=== PATIENT | male | born 1940 | race Caucasian/White ===

== ENCOUNTER → 2016-12-09 | Outpatient (CLI) | payer OTHER | END | disposition home or self-care (01) | LOC: C.LABPBG 08:11 | PROVIDERS: ATTEND Urology | DX: N40.1 Benign prostatic hyperplasia with lower urinary tract symptoms (principal); R97.20 Elevated prostate specific antigen [PSA] ==

== ENCOUNTER → 2017-12-13 | Outpatient (CLI) | payer OTHER | END | disposition home or self-care (01) | LOC: C.LABPBG 08:42 | PROVIDERS: ATTEND Urology | DX: Z00.00 Encounter for general adult medical examination without abnormal findings (principal); R39.15 Urgency of urination ==

== ENCOUNTER 2024-10-15 16:17 | Inpatient (IN) ==
--- OUTSIDE RECORDS SUMMARY | 2024-10-15 16:20 | External Medical Summary | Summary of Care ---
Author Name Unknown Organization [facility] Address [address] [place] [address] Phone [phone] Care Team Providers Care Bricklayer'S Assistant Name Role Phone Yari Palafox MD Primary Care Provide r Reason for Visit * Reason Comments Acute Encounter Details Date Type Department Care Team (Late st Contact Info) Description 09/08/2024 12:00 PM EST Office Visit Family Medicine [address] [place] [phone] Yari Palafox MD [address] [place] [address] [place] [phone] Chronic pain of left knee*; Benign paroxysmal vertigo of both ears Allergies Active Allergy Reactions Criticality Noted Date Comments No Known Drug Allergy 03/15/2001 documented as of this encounter (statuses as of 09/08/2024) Medications Aspirin 81 MG Oral Tablet Delayed Release Take 1 Tablet by mouth in the morning. Active Pravastatin Sodium 10 MG Oral Tablet (Pravachol) TAKE ONE TABLET BY MOUTH EVERY DAY 90 Tablet 3 11/15/19 24 Active Lisinopril 10 MG Oral Tablet (Prinivil) TAKE ONE TABLET BY MOUTH EVERY DAY 90 Tablet 1 07/25/20 24 Active Diclofenac Sodium 1 % External Gel (Voltaren)Krupa cations:Chroni c pain of left knee Apply to the affected area. Pea size amount daily as needed 350 g 1 02/02/20 24 025 Discontinued(Ia dication List Clean Up) predniSONE 10 MG Oral Tablet (Deltasone)Ind ications:Poiso n kemar Take 5 tabs for 2 days, 4 tabs for 2 days, 3 tabs for 2 days, 2 tabs for 2 days 1 tab for 2 days 30 Tablet 03/10/20 025 Discontinued documented as of this encounter (statuses as of 09/08/2024) Active Problems Problem Noted Date Diagnosed Date HTN, goal below 140/90 02/22/2024 Morbid obesity 02/22/2024 ROTATOR CUFF SYND NOS 09/12/2004 BPH without obstruction/lower urinary tract symp toms 09/07/2003 LUMB-LUMBOSAC DISC DEGEN 09/07/2003 Gastroesophageal reflux disease with esophagitis 09/06/2002 GENERAL OSTEOARTHROSIS 09/15/2001 Mixed dyslipidemia Gouty arthropathy Overview (11/26/2015): ICD-10 update of inactive term Carpal tunnel syndrome Cerebrovascular disease, arteriosclerotic, post- stroke documented as of this encounter (statuses as of 09/08/2024) Resolved Problems Problem Noted Date Diagnosed Date Resolved Date Lumbago 09/07/2003 05/20/2023 Contusion of forearm 023 Injury of median nerve 02/16 documented as of this encounter (statuses as of 09/08/2024) Immunizations No known immunizationsdocumented as of this encounter Social History Tobacco Use Types Packs/Day Years Used Date Smoking Tobacco: Never Smokeless Tobacco: Never Alcohol Use Standard Drinks/Week Comments Not Currently 0 (1 standard drink = 0.6 oz pur e alcohol) 1-2 beers q daily Sex and Gender Information Value Date Recorded Sex Assigned at Not on file Legal Sex Male 5:27 AM EST Gender Identity Not on file Sexual Orientation Not on file documented as of this encounter Last Filed Vital Signs Vital Sign Reading Time Taken Comments Blood Pressure 124/86 09/08/2024 11:49 AM EST Pulse 54 09/08/2024 11:49 AM EST Temperature 35.7 C (96.2 F) 09/08/2024 1 1:49 AM EST Respiratory Rate - - Oxygen Saturation 96% 09/08/2024 11: 49 AM EST Inhaled Oxygen Concentration - - Weight 83 kg (183 lb) 09/08/2024 11:49 AM EST per patient, not weighed in the office Height - - Body Mass Index 39.6 04/22/2023 9:41 AM EDT documented in this encounter Progress Notes * Yari Palafox MD - 09/08/2024 12:00 PM EST Subjective: HPI: Dilip Osborn is a 84 year old male with hx of HLD, CVA with L sided weakness, GERD, BPH, Gout,HTN seen for Going to start PT for L knee - seeing [facility] Pt is having intermittent vertigo - only in the morning - denied any fever or ear pain - last for few min - denied any syncope - per pt he was given meclizine in the past Patient Active Problem List Diagnosis Mixed dyslipidemia Gouty arthropathy Carpal tunnel syndrome GENERAL OSTEOARTHROSIS Gastroesophageal reflux disease with esophagitis BPH without obstruction/lower urinary tract symptoms LUMB-LUMBOSAC DISC DEGEN ROTATOR CUFF SYND NOS Cerebrovascular disease, arteriosclerotic, post-stroke HTN, goal below 140/90 Morbid obesity (HCC) Current Outpatient Medications Medication Sig Dispense Refill Aspirin 81 MG Oral Tablet Delayed Release Take 1 Tablet by mouth in the morning. Pravastatin Sodium 10 MG Oral Tablet (Pravachol) TAKE ONE TABLET BY MOUTH EVERY DAY 90 Tablet 3 Lisinopril 10 MG Oral Tablet (Prinivil) TAKE ONE TABLET BY MOUTH EVERY DAY 90 Tablet 1 No current facility-administered medications for this visit. Past Medical History: Diagnosis Date Benign localized hyperplasia of prostate without urinary obstruction and other lower urinary tract symptoms (LUTS) Carpal tunnel syndrome right Cerebrovascular disease, arteriosclerotic, post-stroke 10/25/2010 right cerebellar CVA Contusion of forearm right median nerve Gouty arthropathy Injury of median nerve 05/12/1994 right Mixed dyslipidemia Past Surgical History: Procedure Laterality Date CHG CT HEAD/BRAIN W/O CONTRAST MATERIAL 05/03/2023 There is a large chronic right cerebellar infarct as well as chronic right [employer]MENT [employer] territory infarcts involving the right temporal and occipital lobes as well as the right thalamus. small vessel disease DIGITAL RECTAL EXAM,ANNUAL 04/23/[address] CATHETER IN ARTERIES 11/06/2010 CATHETER PLACEMENT, BRACHIOCEPHALIC, THIRD ORDER BRANCH performed by ALISSA BRAR at OR [facility] PSA SCREENING 04/23/2000 RADIUS HEAD/NECK FX, REPAIR 05/12/1994 right distal radius TRANSCATH STENT-CAROTID ARTERY, W/EMBOL PROTECTION 11/06/2010 CAROTID STENT WITH DISTAL PROTECTION performed by ALISSA BRAR at OR [facility] DUPLEX CAROTID BILAT Bilateral 04/27/2023 <50% ICA stenosis, vertebrals antegrade Review of patient's allergies indicates: Allergen Reactions No Known Drug Allergy Family History Problem Relation Name Age of Onset Diabetes Mother Cancer Mother breast Hypertension Father Hypertension Son Social History Tobacco Use Smoking status: Never Smokeless tobacco: Never Substance Use Topics Alcohol use: Not Currently Comment: 1-2 beers q daily Vaping/E-Cigarette Use Vaping/E-Cigarette Use Never User Vaping/E-Cigarette Substances Vaping/E-Cigarette Devices ROS: -Per HPI OBJECTIVE: BP 124/86 | Pulse 54 | Temp 96.2 F (35.7 C) | Wt 183 lb (83 kg) Comment: per patient, not weighed in the office | SpO2 96% | BMI 39.60 kg/m | BSA 1.83 m PHYSICAL EXAM: Vitals are reviewed General:. NAD, well developed HEENT:. B/l normal ear canal with TM but mild fluids behind the TMs Psych:. AAOx3, normal affect ASSESSMENT/PLAN: Chronic pain of left knee (Primary) - pt is going to start PT Benign paroxysmal vertigo of both ears - discussed the benefit and risk of meclizine - I suspect the vertigo is 2/2 fluids in the ear - per pt it does not affect him too much therefore elected not to try meclizine - discussed flonse and prednisone --if symptoms worsens then will try short course of prednisone I spent a total of 30-39 minutes (exact time 33 mins) on the date of service in preparation, delivery, and documentation of the care provided to Dilip Osborn excluding any time spent in the performance of separately billed services or time spent by another provider/QHP. Yari Palafox MD Family medicine, [address] [address] documented in this encounter Nursing Notes * Digna Brown CMA - 09/08/2024 11:46 AM EST He has trouble with his knee. He loses his balance. He saw Dr. Raymond before and was given a medication that he thinks was for an ear infection. It helped with his wooziness in the morning when he wakes up though. Thinks it started with an "M". He starts PT next week for the knee. documented in this encounter Plan of Treatment Upcoming Encounters Date Type Department Care Team (Late st Contact Info) Description 10/13/2024 8:00 AM EST Office Visit Family Medicine [address] [phone] Yari Palafox MD [address] [place] [address] [place] [phone] Health Maintenance Due Date Last Done Comments Depression Screening 1953 Albumin/Creatinine Ratio 1959 DTap/Tdap Vaccines (1 - Tdap) 01/30/1960 Pneumococcal Vaccine: 50+ Years (1 of 1 - PCV) 1991 Zoster Vaccines (1 of 2) 1991 Adult Wellness Visit 2007 COVID-19 Vaccine (1 - 2023- season) 2024 Influenza Vaccine (FLU shot) (#1) 2024 GFR 09/17/2024 09/17/2023, 03/25, 09/21/2020, Additional history exists HPV (Gardasil) Vaccine Aged Out No lo nger eligible based on patient's age to complete this topic Hepatitis B Vaccine Aged Out No longe r eligible based on patient's age to complete this topic MENINGOCOCCAL (MENACTRA/MENVEO) Aged Out No longer eligible based on patient's age to complete this topic documented as of this encounter Medical Devices Not on filedocumented as of this encounter Visit Diagnoses Diagnosis Chronic pain of left knee- Primary Pain in joint, lower leg Benign paroxysmal vertigo of both ears Benign paroxysmal positional vertigo documented in this encounter Advance Directives * Full Code (Latest Code Status on File) Date Activated Date Inactivated Comments 10/26/2010 1:40 AM 11/07/2010 5:29 PM This order re flects the patients wishes and were consensually agreed upon. Question Answer Comments Discussion of Advance Directives occurred with: Not Discussed Does the patient have a Living Will? No Does the patient have Health Care Power of Attor madeleine? No Care Teams Bricklayer'S Assistant Relationship Specialty Start Date End Date Yari Palafox MD [address] [place] [address] [place] [phone] PCP - General Family Medicine 01/31/24 documented as of this encounter
--- OUTSIDE RECORDS SUMMARY | 2024-10-15 16:20 | External Medical Summary | Summary of Care ---
Author Name Unknown Organization [facility] Address [address] [place] [address] Phone [phone] Care Team Providers Care Yarn Preparation Supervisor Name Role Phone Yari Palafox MD Primary Care Provide r Encounter Details Date Type Department Care Team (Late st Contact Info) Description 09/11/2024 Population Health External Data Unspecified Department Allergies Active Allergy Reactions Criticality Noted Date Comments No Known Drug Allergy 03/15/2001 documented as of this encounter (statuses as of 09/11/2024) Medications Aspirin 81 MG Oral Tablet Delayed Release Take 1 Tablet by mouth in the morning. Active Pravastatin Sodium 10 MG Oral Tablet (Pravachol) TAKE ONE TABLET BY MOUTH EVERY DAY 90 Tablet 3 11/15/2023 Active Lisinopril 10 MG Oral Tablet (Prinivil) TAKE ONE TABLET BY MOUTH EVERY DAY 90 Tablet 1 07/25/2024 Active documented as of this encounter (statuses as of 09/11/2024) Active Problems Problem Noted Date Diagnosed Date [...] as of this encounter (statuses as of 09/11/2024) Resolved Problems Problem Noted Date Diagnosed Date Resolved Date Lumbago 09/07/2003 05/20/2023 Contusion of forearm 023 Injury of median nerve 02/16 documented as of this encounter (statuses as of 09/11/2024) Immunizations No known immunizationsdocumented as of this [...] on file documented as of this encounter Plan of Treatment Upcoming Encounters Date Type Department Care Team (Late st Contact Info) Description 10/13/2024 8:00 AM EST Office Visit Family Medicine [address] [place] [phone] Yari Palafox MD [address] [place] [address] [place] [phone] Health Maintenance Due Date Last Done Comments Depression Screening 1953 Albumin/Creatinine Ratio 1959 DTap/Tdap Vaccines (1 - Tdap) 01/30/1960 Pneumococcal Vaccine: 50+ Years (1 of 1 - PCV) 1991 Zoster Vaccines (1 of 2) 1991 Adult Wellness Visit 2007 COVID-19 Vaccine (1 - season) 2024 Influenza Vaccine (FLU shot) (#1) [...] Not on filedocumented as of this encounter Advance Directives * Full Code [...] Power of Attor madeleine? No Care Teams Yarn Preparation Supervisor Relationship Specialty Start Date End Date Yari Palafox MD [address] [place] [address] [place] [phone] PCP - General Family Medicine 01/31/24 documented as of this encounter
--- OUTSIDE RECORDS SUMMARY | 2024-10-15 16:20 | External Medical Summary | Summary of Care ---
Author Name Unknown Organization [facility] Address [address] [place] [address] Phone [phone] Care Team Providers Care Stabilizing Machine Operator Name Role Phone Yari Palafox MD Primary Care Provide r Reason for Visit * Reason Onset Date Comments Health Maintenance 10/12/2024 Encounter Details Date Type Department Care Team (Late st Contact Info) Description 10/12/2024 Telephone Family Medicine [address] [place] [phone] Yari Palafox MD [address] [place] [address] [place] [address] Health Maintenance Allergies Active Allergy Reactions Criticality Noted Date Comments No Known Drug Allergy 03/15/2001 documented as of this encounter (statuses as of 10/12/2024) Medications Aspirin 81 MG Oral Tablet Delayed Release Take 1 Tablet by mouth in the morning. Active Pravastatin Sodium 10 MG Oral Tablet (Pravachol) TAKE ONE TABLET BY MOUTH EVERY DAY 90 Tablet 3 11/15/2023 Active Lisinopril 10 MG Oral Tablet (Prinivil) TAKE ONE TABLET BY MOUTH EVERY DAY 90 Tablet 1 07/25/2024 Active documented as of this encounter (statuses as of 10/12/2024) Active Problems Problem Noted Date Diagnosed Date [...] as of this encounter (statuses as of 10/12/2024) Resolved Problems Problem Noted Date Diagnosed Date Resolved Date Lumbago 09/07/2003 05/20/2023 Contusion of forearm 023 Injury of median nerve 02/16 documented as of this encounter (statuses as of 10/12/2024) Immunizations No known immunizationsdocumented as of this [...] on file documented as of this encounter Miscellaneous Notes * Telephone Encounter - Estefania Finley LPN - 10/12/2024 11:47 AM EST Care Gaps Comprehensive Care Outreach Last Office/Telemedicine Visit: 09/08/2024 (in office), Visit date not found (telemedicine) Next Office Visit: 10/13/2024 Hemoglobin AIC Results: Lab Results Component Value Date/Time HEMOGLOBIN A1C - [facility] 6.0 10/26/2010 01:51 AM BP Readings from Last 1 Encounters: 09/08/24 124/86 Reviewed Health Maintenance below: Health Maintenance Topic Date Due Depression Screening Never done Albumin/Creatinine Ratio Never done DTap/Tdap Vaccines (1 - Tdap) Never done Zoster Vaccines (1 of 2) Never done Pneumococcal Vaccine: 50+ Years (1 of 1 - PCV) Never done Adult Wellness Visit Never done Pcp tomorrow Care Gap Outreach Action Taken: Outreach not indicated documented in this encounter Plan of Treatment Upcoming Encounters Date Type Department Care Team (Late st Contact Info) Description 10/13/2024 8:00 AM EST Office Visit Family Medicine [address] [place] [phone] Yari Palafox MD [address] [place] [address] [place] [phone] Health Maintenance Due Date Last Done Comments [...] on patient's age to complete this topic Meningitis B Vaccine (Bexsero/Trumemba) Aged Out No longer eligible based on [...] Power of Attor madeleine? No Care Teams Stabilizing Machine Operator Relationship Specialty Start Date End Date Yari Palafox MD [address] [place] [address] [place] [phone] PCP - General Family Medicine 01/31/24 documented as of this encounter
--- OUTSIDE RECORDS SUMMARY | 2024-10-15 16:20 | External Medical Summary | Summary of Care ---
Author Name Unknown Organization [facility] Address [address] [place] [address] Phone [phone] Care Team Providers Care Rotor Winder Name Role Phone Yari Palafox MD Primary Care Provide r Reason for Visit * Reason Comments eRx-Medication Refill Encounter Details Date Type Department Care Team (Late st Contact Info) Description 07/24/2024 Refill Family Medicine [address] [place] [phone] Yari Palafox MD [address] [place] [address] [place] [phone] Allergies Active Allergy Reactions Criticality Noted Date Comments No Known Drug Allergy 03/15/2001 documented as of this encounter (statuses as of 07/25/2024) Medications Aspirin 81 MG Oral Tablet Delayed Release Take 1 Tablet by mouth in the morning. Active Pravastatin Sodium 10 MG Oral Tablet (Pravachol) TAKE ONE TABLET BY MOUTH EVERY DAY 90 Tablet 3 4 Active Diclofenac Sodium 1 % External Gel (Voltaren)Krupa cations:Chroni c pain of left knee Apply to the affected area. Pea size amount daily as needed 350 g 1 4 Active predniSONE 10 MG Oral Tablet (Deltasone)Ind ications:Poiso n kemar Take 5 tabs for 2 days, 4 tabs for 2 days, 3 tabs for 2 days, 2 tabs for 2 days 1 tab for 2 days 30 Tablet 4 Active Lisinopril 10 MG Oral Tablet (Prinivil) TAKE ONE TABLET BY MOUTH EVERY DAY 90 Tablet 1 4 Active Lisinopril 10 MG Oral Tablet (Prinivil) TAKE ONE TABLET BY MOUTH EVERY DAY 90 Tablet 1 4 024 Discontinued documented as of this encounter (statuses as of 07/25/2024) Active Problems Problem Noted Date Diagnosed Date [...] as of this encounter (statuses as of 07/25/2024) Resolved Problems Problem Noted Date Diagnosed Date Resolved Date Lumbago 09/07/2003 05/20/2023 Contusion of forearm 023 Injury of median nerve 02/16 documented as of this encounter (statuses as of 07/25/2024) Immunizations No known immunizationsdocumented as of this [...] encounter Miscellaneous Notes * Telephone Encounter - Charlie Mackenzie [facility] - 07/25/2024 2:48 PM ESTSigned Prescriptions: Disp Refills Lisinopril 10 MG Oral Tablet (Prinivil) 90 Tab*1 Sig: TAKE ONE TABLET BY MOUTH EVERY DAYAuthorizing Provider: Kayla PALAFOX User: CHARLIE MACKENZIE documented in this encounter Plan of Treatment Upcoming Encounters Date Type Department Care Team (Late st Contact Info) Description 10/13/2024 8:00 AM EST Office Visit Family Medicine [address] [place] [phone] Yari Palafox MD [address] [place] [address] [place] [phone] Health Maintenance Due Date Last Done Comments Depression Screening 1953 Albumin/Creatinine Ratio 1959 DTap/Tdap Vaccines (1 - Tdap) 01/30/1960 Zoster Vaccines (1 of 2) 1991 Pneumococcal Vaccine: 65+ Years (1 of 1 - PCV) 2006 Adult Wellness Visit 2007 COVID-19 Vaccine ( - season) 2024 Influenza Vaccine (FLU shot) (#1) 2024 GFR 09/17/2024 09/17/2023, 08/08/2022, 09/21/2020, Additional history exists HPV (Gardasil) Vaccine [...] Power of Attor madeleine? No Care Teams Rotor Winder Relationship Specialty Start Date End Date Yari Palafox MD [address] [place] [address] [place] [phone] PCP - General Family Medicine 01/31/24 documented as of this encounter
[2024-10-15 16:46] LABS: Basophils # (auto) 0.02 K/uL (0.00-0.20); Basophils % (auto) 0.2 %; Eosinophils # (auto) 0.02 K/uL (0.00-0.50); Eosinophils % (auto) 0.2 %; Hematocrit (blood only) 42.9 % (42.0-52.0); Hemoglobin 14.9 g/dl (14.0-18.0); Immature Granulocytes # (auto) 0.09 K/uL (0.01-0.20); Lymphocytes # (auto) 1.01 K/uL (1.20-3.40); Lymphocytes % (auto) 11.1 %; Mean Corpuscular Hemoglobin 29.3 pg (25.0-34.0); Mean Corpuscular Hgb Conc 34.7 g/dL (32.0-36.0); Mean Corpuscular Volume 84.4 fL (80.0-100.0); Mean Platelet Volume 9.5 fL (9.4-12.4); Monocytes # (auto) 1.01 K/uL (0.11-0.59); Monocytes % (auto) 11.1 %; Neutrophils # (auto) 6.96 K/uL (1.40-6.50); Neutrophils % (auto) 76.4 %; Platelet Count 300 K/uL (130-400); RDW Coefficient of Variation 13.1 % (11.5-14.5); RDW Standard Deviation 40.9 fL (36.4-46.3); Red Blood Count 5.08 M/uL (4.70-6.10); White Blood Count 9.11 K/ul (4.8-10.8)
--- NOTE | 2024-10-15 16:47 | Emergency Department Note ---
Impression & Plan Acute pyelonephritis, Influenza A, Acute renal failure (ARF), Pneumonia ED Provider Note NAME: BRIANDA HUNT AGE: 84 SEX: M : 1940 ARRIVES VIA: Ambulance INFORMANT: Patient, the patient's son ED PROVIDER(S): Chilango Jimenez DO CHIEF COMPLAINT: Cough and back pain HPI: The patient is an 84-year-old male who presented to the emergency department with multiple complaints. He came by ambulance. His family members called the ambulance because he has been having problems with an upper respiratory infection that is been ongoing over the course of the last. 8 or 9 days. The patient's significant other also became sick but was better in approximately 2 to 3 days. The patient complains of cough and weakness. He is not been eating or drinking. He also complains of abdominal pain and back pain. He denies having any chest pain. He denies having any hemoptysis. He states he is "just not hungry "and that is why he is not eating or drinking. He tried to see his doctor but was unable to go. They were not able to get him an appointment until December. ROS: See above HPI for pertinent positives & negatives. A total of 10 systems reviewed and were otherwise negative. PAST MEDICAL HISTORY: See Below PAST SURGICAL HISTORY: See Below FAMILY HISTORY: See Below SOCIAL HISTORY: See Below HOME MEDICATIONS: See Below ALLERGIES: See Below VITALS: See Below PHYSICAL EXAMINATION: GENERAL: Patient is awake alert in no acute distress patient is resting comfortably and showing no signs of anxiety EYES: The conjunctivae are clear. The pupils are round and reactive. EARS, NOSE, MOUTH AND THROAT: The nose is without any evidence of any deformity. NECK: The neck is nontender and supple. RESPIRATORY: Normal respiratory effort is noted there is no evidence of wheezing rhonchi or rales CARDIOVASCULAR: Regular rate and rhythm noted there no murmurs rubs or gallops normal S1 normal S2. GASTROINTESTINAL: The abdomen is soft. There is right-sided tenderness to palpation which is moderate. There is no specific guarding. BACK: No midline tenderness or or step-off noted range of motion in flexion extension as well as rotation no signs of muscle spasm noted MUSCULOSKELETAL/EXTREMITIES: There is no evidence of gross deformity full range of motion is noted in the hips and shoulders. SKIN: There is no obvious evidence of any rash. There are no petechiae, pallor or cyanosis noted. NEUROLOGIC: Patient is awake alert and oriented x3. Strength is symmetric. MEDICAL DECISION MAKING: The patient is an 84-year-old male who presented to the emergency department with family for an evaluation of generalized illness. The patient had a viral type syndrome. The patient was felt to be dehydrated. He was not eating or drinking very much. The patient was found no signs of urinary tract infection. He was treated with IV fluids as well as IV antibiotics. His flu swab was positive and he was found to have signs of renal failure on laboratory studies. I discussed the patient's laboratory and radiographic studies with him and his family. [facility] have agreed to evaluate the patient in the emergency department for further management and disposition. Triage Nursing notes reviewed. Prior medical records reviewed Vital Signs: reviewed and remarkable for no significant abnormalities Differential diagnosis: Etiologies such as appendicitis, diverticulitis, obstruction, inflammatory bowel disease, renal colic, PUD, biliary pathology, pancreatitis, mesenteric ischemia, aortic pathology, infections, genitourinary, UTI, perforated viscus, as well as others were entertained. ER treatment provided: See below Diagnostics interpreted by me: ECG: EKG was obtained in the emergency department. My interpretation is normal sinus rhythm at 89 bpm. There is no ectopy. There was no acute ST segment abnormalities noted. This was compared to a tracing from October 03, 2019. No changes were noted. Cardiac Monitoring: An order was placed for continuous cardiac monitoring. The monitor shows a rate of 93 bpm with sinus rhythm. Laboratory studies: As stated above and show below. Imaging studies: See below. Radiographic imaging was reviewed by myself Consultation(s): I discussed this case with Dr. Adair who [facility] Past Med/Surg History Problem List (Updated 10/15/24 @ 18:30 by Chilango Jimenez DO) Pneumonia (Acute) Acute renal failure (ARF) (Acute) Influenza A (Acute) Acute pyelonephritis (Acute) Encounter for pre-operative examination BPH (benign prostatic hyperplasia) Elevated PSA Urinary urgency Enlarged prostate Medical History (Updated 10/15/24 @ 18:30 by Chilango Jimenez DO) Back pain Hydrocele LEFT History of stroke 9 YR AGO - NO RESIDUAL EFFECTS Hypertension Surgical History No history of previous surgery Family History Mother FHx: breast cancer Mother Family history of diabetes mellitus Social History Smoking Status: Never smoker Second Hand Exposure: Yes ( SMOKES); Do You Dip or Chew Tobacco: No; Hx Alcohol Use: Yes (VERY RARE) Alcohol type: wine Hx Substance Use: No Preferred Language: Spanish Communication Ability: Effective Beliefs That Will Affect Care: None Current Living Situation: Spouse Feels Safe at Home: Yes Assistive Devices: Denture - Upper, Denture - Lower and Glasses Allergies Allergies Allergy/AdvReac Type Severity Reaction Status Date / Time No Known Allergies Allergy Verified 05/07/20 07:51 Home Meds Home Medications Medication Instructions Recorded Confirmed aspirin 81 mg tablet,delayed 81 mg PO QAM 09/28/19 10/15/24 release (Bettie Low Dose Aspirin) lisinopril 5 mg tablet 5 mg PO QAM 09/28/19 10/15/24 pravastatin 10 mg tablet 10 mg PO HS 09/28/19 10/15/24 Results & Data (ED) Vital Signs Vital Signs - 24 hr 10/15/24 16:23 10/15/24 16:43 Temperature 36.4 C L Temperature Source Oral Pulse Rate 91 H 93 H Respiratory Rate 22 Blood Pressure 102/62 Blood Pressure Mean 75 Blood Pressure Position Sitting Pulse Oximetry 97 Oxygen Delivery Method Room Air Sepsis Recent Fever Within 48 Hours No Sepsis New/Unexplained Change in Mental Status No Sepsis Action Taken by Nursing No Action Required Home Medications Current Medication List: was personally reviewed by me Laboratory Data Attestation: I reviewed the patient's lab results. 10/15/24 16:25 10/15/24 16:25 Lab Results 10/15/24 10/15/24 10/15/24 Range/Units 16:23 16:25 16:58 WBC 9.11 (4.8-10.8) K/ul RBC 5.08 (4.70-6.10) M/uL Hgb 14.9 (14.0-18.0) g/dl POC Hgb 13.9 L (14.0-18.0) g/dl Hct 42.9 (42.0-52.0) % POC Hct 41 L (42-52) % MCV 84.4 (80.0-100.0) fL MCH 29.3 (25.0-34.0) pg MCHC 34.7 (32.0-36.0) g/dL RDW Std Deviation 40.9 (36.4-46.3) fL RDW Coeff of Miguel Angel 13.1 (11.5-14.5) % Plt Count 300 (130-400) K/uL MPV 9.5 (9.4-12.4) fL Immature Gran % (Auto) 1.0 % Neut % (Auto) 76.4 % Lymph % (Auto) 11.1 % [place] % (Auto) 11.1 % Eos % (Auto) 0.2 % Baso % (Auto) 0.2 % Neut # (Auto) 6.96 H (1.40-6.50) K/uL Lymph # (Auto) 1.01 L (1.20-3.40) K/uL [place] # (Auto) 1.01 H (0.11-0.59) K/uL Eos # (Auto) 0.02 (0.00-0.50) K/uL Baso # (Auto) 0.02 (0.00-0.20) K/uL Immature Gran # (Auto) 0.09 (0.01-0.20) K/uL PT 10.7 (9.0-12.0) Seconds INR 1.0 (0.9-1.1) APTT 28 (21-31) Seconds PTT Ratio 1.0 VBG pH (7.36-7.41) VBG pCO2 (38-50) mmHg VBG pO2 mmHg VBG HCO3 mmol/L VBG O2 Saturation % VBG Base Excess mEq/L POC Sodium 133 L (135-144) mmol/L Sodium 133 L (136-145) mmol/L POC Potassium 4.0 (3.3-5.0) mmol/L Potassium 4.3 (3.5-5.1) mmol/L POC Chloride 100 L (101-112) mmol/L Chloride 99 (98-107) mmol/L Carbon Dioxide 16 L (21-32) mmol/L POC Total CO2 16 L (24-31) mmol/L Anion Gap 18 H (3-11) POC Anion Gap 22.0 (16-25) mmol/L POC BUN > 140 H* (7-18) mg/dl BUN 162 H (6-23) mg/dl Creatinine 5.18 H* (0.6-1.4) mg/dl POC Creatinine 5.7 H* (0.6-1.3) mg/dl Est Cr Clr Drug Dosing 10.4 ml/min eGFR 10.38 BUN/Creatinine Ratio 31.3 H (10-20) Glucose 112 H (70-99(Fasting)) mg/dl POC Glucose (other) 108 H (70-99) mg/dl Calcium 8.9 (8.6-10.3) mg/dl POC Ioniz Calcium Jay 1.07 L (1.12-1.32) mmol/l Total Bilirubin 0.4 (0.2-1.0) mg/dl AST 11 L (13-39) U/L ALT 12 (7-52) U/L Alkaline Phosphatase 44 (34-104) U/L Total Creatine Kinase 134 (30-223) U/L Troponin I High Sens 10.1 (0-20) pg/ml Total Protein 7.5 (6.0-8.3) gm/dl Albumin 3.8 (3.4-5.0) gm/dl Globulin 3.7 (2.5-4.0) gm/dl Albumin/Globulin Ratio 1.0 (0.9-2) Lipase 32 (11-82) U/L Urine Color Urine Appearance (Clear) Urine pH (4.5-7.5) Ur Specific [place] (1.000-1.030) Urine Protein (Negative) Urine Glucose (UA) (Negative) Urine Ketones (Negative) Urine Blood (Negative) Urine Nitrite (Negative) Urine Bilirubin (Negative) Urine Urobilinogen (Negative) Ur Leukocyte Esterase (Negative) Urine WBC (Auto) (0-5) /hpf Urine RBC (Auto) (0-2) /hpf U Hyaline Cast (Auto) (0-2) /lpf U Epithel Cells (Auto) (0-2) /hpf Urine Bacteria (Auto) (None Seen) Nasal Influ A H1 2008 PCR DETECTED A (NotDetected) Adenovirus (PCR) Not Detected (NotDetected) B. pertussis DNA (PCR) Not Detected (NotDetected) B.parapertussis DNA PCR Not Detected (NotDetected) C. pneumoniae DNA (PCR) Not Detected (NotDetected) Coronavirus OC43 (PCR) Not Detected (NotDetected) Coronavirus HKU1 (PCR) Not Detected (NotDetected) Coronavirus 229E (PCR) Not Detected (NotDetected) SARS-CoV-2 (PCR) Not Detected (NotDetected) Coronavirus NL63 (PCR) Not Detected (NotDetected) Human Metapneumovir PCR Not Detected (NotDetected) Influenza Type B (PCR) Not Detected (NotDetected) M. pneumoniae (PCR) Not Detected (NotDetected) Parainfluenza 1 (PCR) Not Detected (NotDetected) Parainfluenza 2 (PCR) Not Detected (NotDetected) Parainfluenza 3 (PCR) Not Detected (NotDetected) Parainfluenza 4 (PCR) Not Detected (NotDetected) RSV (PCR) Not Detected (NotDetected) Entero/Rhino (PCR) Not Detected (NotDetected) 10/15/24 10/15/24 Range/Units 17:48 17:57 WBC (4.8-10.8) K/ul RBC (4.70-6.10) M/uL Hgb (14.0-18.0) g/dl POC Hgb (14.0-18.0) g/dl Hct (42.0-52.0) % POC Hct (42-52) % MCV (80.0-100.0) fL MCH (25.0-34.0) pg MCHC (32.0-36.0) g/dL RDW Std Deviation (36.4-46.3) fL RDW Coeff of Miguel Angel (11.5-14.5) % Plt Count (130-400) K/uL MPV (9.4-12.4) fL Immature Gran % (Auto) % Neut % (Auto) % Lymph % (Auto) % [place] % (Auto) % Eos % (Auto) % Baso % (Auto) % Neut # (Auto) (1.40-6.50) K/uL Lymph # (Auto) (1.20-3.40) K/uL [place] # (Auto) (0.11-0.59) K/uL Eos # (Auto) (0.00-0.50) K/uL Baso # (Auto) (0.00-0.20) K/uL Immature Gran # (Auto) (0.01-0.20) K/uL PT (9.0-12.0) Seconds INR (0.9-1.1) APTT (21-31) Seconds PTT Ratio VBG pH 7.28 L (7.36-7.41) VBG pCO2 31 L (38-50) mmHg VBG pO2 33 mmHg VBG HCO3 15 mmol/L VBG O2 Saturation < 60.0 % VBG Base Excess -10.9 mEq/L POC Sodium (135-144) mmol/L Sodium (136-145) mmol/L POC Potassium (3.3-5.0) mmol/L Potassium (3.5-5.1) mmol/L POC Chloride (101-112) mmol/L Chloride (98-107) mmol/L Carbon Dioxide (21-32) mmol/L POC Total CO2 (24-31) mmol/L Anion Gap (3-11) POC Anion Gap (16-25) mmol/L POC BUN (7-18) mg/dl BUN (6-23) mg/dl Creatinine (0.6-1.4) mg/dl POC Creatinine (0.6-1.3) mg/dl Est Cr Clr Drug Dosing ml/min eGFR BUN/Creatinine Ratio (10-20) Glucose (70-99(Fasting)) mg/dl POC Glucose (other) (70-99) mg/dl Calcium (8.6-10.3) mg/dl POC Ioniz Calcium Jay (1.12-1.32) mmol/l Total Bilirubin (0.2-1.0) mg/dl AST (13-39) U/L ALT (7-52) U/L Alkaline Phosphatase (34-104) U/L Total Creatine Kinase (30-223) U/L Troponin I High Sens (0-20) pg/ml Total Protein (6.0-8.3) gm/dl Albumin (3.4-5.0) gm/dl Globulin (2.5-4.0) gm/dl Albumin/Globulin Ratio (0.9-2) Lipase (11-82) U/L Urine Color Yellow Urine Appearance Cloudy A (Clear) Urine pH 5.0 (4.5-7.5) Ur Specific [place] 1.017 (1.000-1.030) Urine Protein Trace H (Negative) Urine Glucose (UA) Negative (Negative) Urine Ketones Trace H (Negative) Urine Blood Negative (Negative) Urine Nitrite Negative (Negative) Urine Bilirubin Negative (Negative) Urine Urobilinogen Negative (Negative) Ur Leukocyte Esterase Negative (Negative) Urine WBC (Auto) 6-10 H (0-5) /hpf Urine RBC (Auto) 6-10 H (0-2) /hpf U Hyaline Cast (Auto) >20 H (0-2) /lpf U Epithel Cells (Auto) 0-2 (0-2) /hpf Urine Bacteria (Auto) None Seen (None Seen) Nasal Influ A H1 2008 PCR (NotDetected) Adenovirus (PCR) (NotDetected) B. pertussis DNA (PCR) (NotDetected) B.parapertussis DNA PCR (NotDetected) C. pneumoniae DNA (PCR) (NotDetected) Coronavirus OC43 (PCR) (NotDetected) Coronavirus HKU1 (PCR) (NotDetected) Coronavirus 229E (PCR) (NotDetected) SARS-CoV-2 (PCR) (NotDetected) Coronavirus NL63 (PCR) (NotDetected) Human Metapneumovir PCR (NotDetected) Influenza Type B (PCR) (NotDetected) M. pneumoniae (PCR) (NotDetected) Parainfluenza 1 (PCR) (NotDetected) Parainfluenza 2 (PCR) (NotDetected) Parainfluenza 3 (PCR) (NotDetected) Parainfluenza 4 (PCR) (NotDetected) RSV (PCR) (NotDetected) Entero/Rhino (PCR) (NotDetected) Administered Medications Discontinued Medications Sodium Chloride (Nss) 500 mls @ 999 mls/hr IV .Q31M ONE Stop: 10/15/24 17:11 Last Admin: 10/15/24 16:54 Dose: 999 mls/hr Documented By: STEFFANIE Imaging Data Attestation: I personally reviewed and interpreted this imaging study as follows: My Impression: 1 view chest x-ray was obtained in the emergency department. My interpretation is no free air, possible infiltrate in the right base, final report below. Radiologist's Impression: Chest X-Ray 10/15/24 16:27 INDICATION: Cough. TECHNIQUE: Frontal radiograph of the chest. COMPARISON: Radiograph from 10/03/2019. FINDINGS: Low inspiratory depth. Mild cardiomegaly. Pulmonary vasculature appear within normal limits. Right lower lobe atelectasis/airspace disease. No pleural effusion or pneumothorax. No acute osseous abnormality evident. IMPRESSION: Right lower lobe atelectasis/airspace disease. Electronically signed by Len Ventura 10-15-2024 5:11 PM Abdomen/Pelvis CT 10/15/24 17:01 CT CHEST ABDOMEN and PELVIS WITHOUT CONTRAST INDICATION: Pain. Cough TECHNIQUE: CT of chest, abdomen and pelvis was obtained with intravenous contrast. IV CONTRAST: NONE Enteric contrast: Not Given COMPARISON: FINDINGS: LOWER NECK: Normal thyroid. LYMPH NODES: A few small nonenlarged lymph nodes in the mediastinum. No lymphadenopathy by size criteria. CARDIOVASCULAR: Cardiac size is enlarged. Coronary artery calcifications are noted. No aortic aneurysm. LUNGS: The trachea and central bronchi are widely patent. There are some debris in the right lower lobar airways. Peribronchial cuffing noted in the right lung base where there are also patchy infiltrates. There are no suspicious pulmonary nodules. PLEURA: There are no pleural effusions. There is no pneumothorax. LIVER: No focal lesion identified. GALLBLADDER/BILIARY: Unremarkable gallbladder. No abnormal biliary dilatation. SPLEEN: Unremarkable. PANCREAS: Unremarkable. ADRENALS: Unremarkable. KIDNEYS: Mild perinephric stranding bilaterally.. No stones or hydronephrosis identified. PERITONEUM/RETROPERITONEUM. No lymphadenopathy by size criteria. No aortic aneurysm. Mild atherosclerosis. GASTROINTESTINAL: No obstruction. Moderate size hiatal hernia. Extensive colonic diverticulosis of the rectosigmoid without overt diverticulitis. Normal appendix is identified. REPRODUCTIVE: Enlarged prostate gland with coarse calcifications, seemingly impinging upon the urinary bladder outlet. URINARY BLADDER: Mildly distended. Moderate wall thickening and mild perivesical inflammation. BONES: No acute findings. IMPRESSION: Infectious/inflammatory bronchiolitis with evidence of small quantity aspiration in the right lower lobe. Also in the right lower lobe there are patchy acute infiltrates suggesting mild pneumonia. Moderate size hiatal hernia. Enlarged prostate gland impinging upon the urinary bladder outlet. There are inflammatory changes of the urinary bladder which may be due to superimposed cystitis. In addition, mild perinephric stranding noted bilaterally. Please correlate with urinalysis for these findings. Electronically signed by Dayron Isaac 10-15-2024 6:[address] 10/15/24 17:17 CT CHEST ABDOMEN and PELVIS WITHOUT CONTRAST INDICATION: Pain. Cough TECHNIQUE: CT of chest, abdomen and pelvis was obtained with intravenous contrast. IV CONTRAST: NONE Enteric contrast: Not Given COMPARISON: FINDINGS: LOWER NECK: Normal thyroid. LYMPH NODES: A few small nonenlarged lymph nodes in the mediastinum. No lymphadenopathy by size criteria. CARDIOVASCULAR: Cardiac size is enlarged. Coronary artery calcifications are noted. No aortic aneurysm. LUNGS: The trachea and central bronchi are widely patent. There are some debris in the right lower lobar airways. Peribronchial cuffing noted in the right lung base where there are also patchy infiltrates. There are no suspicious pulmonary nodules. PLEURA: There are no pleural effusions. There is no pneumothorax. LIVER: No focal lesion identified. GALLBLADDER/BILIARY: Unremarkable gallbladder. No abnormal biliary dilatation. SPLEEN: Unremarkable. PANCREAS: Unremarkable. ADRENALS: Unremarkable. KIDNEYS: Mild perinephric stranding bilaterally.. No stones or hydronephrosis identified. PERITONEUM/RETROPERITONEUM. No lymphadenopathy by size criteria. No aortic aneurysm. Mild atherosclerosis. GASTROINTESTINAL: No obstruction. Moderate size hiatal hernia. Extensive colonic diverticulosis of the rectosigmoid without overt diverticulitis. Normal appendix is identified. REPRODUCTIVE: Enlarged prostate gland with coarse calcifications, seemingly impinging upon the urinary bladder outlet. URINARY BLADDER: Mildly distended. Moderate wall thickening and mild perivesical inflammation. BONES: No acute findings. IMPRESSION: Infectious/inflammatory bronchiolitis with evidence of small quantity aspiration in the right lower lobe. Also in the right lower lobe there are patchy acute infiltrates suggesting mild pneumonia. Moderate size hiatal hernia. Enlarged prostate gland impinging upon the urinary bladder outlet. There are inflammatory changes of the urinary bladder which may be due to superimposed cystitis. In addition, mild perinephric stranding noted bilaterally. Please correlate with urinalysis for these findings. Electronically signed by Dayron Isaac 10-15-2024 6:01 PM Discharge Plan Visit Data Chief Complaint: Illness ED Provider: Chilango Jimenez Discharge Problem: Acute pyelonephritis, Influenza A, Acute renal failure (ARF), Pneumonia Patient Disposition: Being Evaluated by Hospitalist Forms Stand Alone Forms: My [facility] Prescriptions Prescriptions: No Action aspirin [Bettie Low Dose Aspirin] 81 mg Tablet,Delayed Release (Dr/Ec) 81 mg PO QAM lisinopril 5 mg Tablet 5 mg PO QAM pravastatin 10 mg Tablet 10 mg PO HS Referrals Referrals: PCP,NO [Primary Care Provider] -
[2024-10-15] MEDS: SODIUM CHLORIDE 0.9% 500 ML IV ONE (16:54)
[2024-10-15 17:10] LABS: iSTAT Blood Urea Nitrogen > 140 mg/dl (7-18); iSTAT Carbon Dioxide 16 mmol/L (24-31); iSTAT Chloride 100 mmol/L (101-112); iSTAT Creatinine 5.7 mg/dl (0.6-1.3); iSTAT Glucose 108 mg/dl (70-99); iSTAT Hematocrit 41 % (42-52); iSTAT Hemoglobin 13.9 g/dl (14.0-18.0); iSTAT Ionized Calcium 1.07 mmol/l (1.12-1.32); iSTAT Sodium 133 mmol/L (135-144)
--- NOTE | 2024-10-15 17:11 | XRay Report ---
INDICATION: Cough. TECHNIQUE: Frontal radiograph of the chest. COMPARISON: Radiograph from 10/03/2019. FINDINGS: Low inspiratory depth. Mild cardiomegaly. Pulmonary vasculature appear within normal limits. Right lower lobe atelectasis/airspace disease. No pleural effusion or pneumothorax. No acute osseous abnormality evident. IMPRESSION: Right lower lobe atelectasis/airspace disease. Electronically signed by Len Ventura 10-15-2024 5:11 PM
[2024-10-15 17:15] LABS: Partial Thromboplastin Time 28 Seconds (21-31); Prothrombin Time 10.7 Seconds (9.0-12.0)
[2024-10-15 17:21] LABS: Albumin Level 3.8 gm/dl (3.4-5.0); BUN Creatinine Ratio 31.3 (10-20); Bilirubin,Total 0.4 mg/dl (0.2-1.0); Calcium 8.9 mg/dl (8.6-10.3); Creatinine Clr Calc Pharmacy 10.4 ml/min; Globulin 3.7 gm/dl (2.5-4.0); Potassium 4.3 mmol/L (3.5-5.1); Total Protein 7.5 gm/dl (6.0-8.3)
[2024-10-15 17:43] LABS: Troponin I High Sensitivity 10.1 pg/ml (0-20)
[2024-10-15 17:51] LABS: Adenovirus PCR Not Detected (NotDetected); Bordetella parapertussis PCR Not Detected (NotDetected); Bordetella pertussis PCR Not Detected (NotDetected); Chlamydia pneumoniae PCR Not Detected (NotDetected); Coronavirus 229E PCR Not Detected (NotDetected); Coronavirus CoV-2 (COVID19)PCR Not Detected (NotDetected); Coronavirus HKU1 PCR Not Detected (NotDetected); Coronavirus NL63 PCR Not Detected (NotDetected); Coronavirus OC43PCR Not Detected (NotDetected); Human Metapneumovirus PCR Not Detected (NotDetected); Influenza A (H1 2009) PCR DETECTED (NotDetected); Influenza B PCR Not Detected (NotDetected); Mycoplasma pneumoniae PCR Not Detected (NotDetected); Parainfluenza Virus 1 PCR Not Detected (NotDetected); Parainfluenza Virus 2 PCR Not Detected (NotDetected); Parainfluenza Virus 3 PCR Not Detected (NotDetected); Parainfluenza Virus 4 PCR Not Detected (NotDetected); Respiratory Syncytial VirusPCR Not Detected (NotDetected); Rhinovirus/Enterovirus PCR Not Detected (NotDetected)
--- NOTE | 2024-10-15 18:01 | CT Scan Report ---
CT CHEST ABDOMEN and PELVIS WITHOUT CONTRAST INDICATION: Pain. Cough TECHNIQUE: CT of chest, abdomen and pelvis was obtained with intravenous contrast. IV CONTRAST: NONE Enteric contrast: Not Given COMPARISON: FINDINGS: LOWER NECK: Normal thyroid. LYMPH NODES: A few small nonenlarged lymph nodes in the mediastinum. No lymphadenopathy by size criteria. CARDIOVASCULAR: Cardiac size is enlarged. Coronary artery calcifications are noted. No aortic aneurysm. LUNGS: The trachea and central bronchi are widely patent. There are some debris in the right lower lobar airways. Peribronchial cuffing noted in the right lung base where there are also patchy infiltrates. There are no suspicious pulmonary nodules. PLEURA: There are no pleural effusions. There is no pneumothorax. LIVER: No focal lesion identified. GALLBLADDER/BILIARY: Unremarkable gallbladder. No abnormal biliary dilatation. SPLEEN: Unremarkable. PANCREAS: Unremarkable. ADRENALS: Unremarkable. KIDNEYS: Mild perinephric stranding bilaterally.. No stones or hydronephrosis identified. PERITONEUM/RETROPERITONEUM. No lymphadenopathy by size criteria. No aortic aneurysm. Mild atherosclerosis. GASTROINTESTINAL: No obstruction. Moderate size hiatal hernia. Extensive colonic diverticulosis of the rectosigmoid without overt diverticulitis. Normal appendix is identified. REPRODUCTIVE: Enlarged prostate gland with coarse calcifications, seemingly impinging upon the urinary bladder outlet. URINARY BLADDER: Mildly distended. Moderate wall thickening and mild perivesical inflammation. BONES: No acute findings. IMPRESSION: Infectious/inflammatory bronchiolitis with evidence of small quantity aspiration in the right lower lobe. Also in the right lower lobe there are patchy acute infiltrates suggesting mild pneumonia. Moderate size hiatal hernia. Enlarged prostate gland impinging upon the urinary bladder outlet. There are inflammatory changes of the urinary bladder which may be due to superimposed cystitis. In addition, mild perinephric stranding noted bilaterally. Please correlate with urinalysis for these findings. Electronically signed by Dayron Isaac 10-15-2024 6:01 PM
[2024-10-15 18:07] LABS: Base Excess VBG -10.9 mEq/L; HCO3 VBG 15 mmol/L; Oxygen Saturation VBG < 60.0 %; PCO2 VBG 31 mmHg (38-50); PO2 VBG 33 mmHg; pH VBG 7.28 (7.36-7.41)
[2024-10-15 18:24] LABS: Appearance Urine Cloudy (Clear); Bacteria Urine Automated None Seen (None Seen); Bilirubin Urine Negative (Negative); Blood Urine Negative (Negative); Cast Urine Automated >20 /lpf (0-2); Color Urine Yellow; Epithelial Cell Urine Auto 0-2 /hpf (0-2); Glucose Urine UA Negative (Negative); Ketones Urine Trace (Negative); Leukocyte Esterase Urine Negative (Negative); Nitrite Urine Negative (Negative); Protein Urine Trace (Negative); Specific Gravity Urine 1.017 (1.000-1.030); Urobilinogen Urine Negative (Negative)
[2024-10-15] MEDS: SODIUM CHLORIDE 0.9% 1,000 ML IV ONE (18:49)
--- NOTE | 2024-10-15 19:03 | History & Physical Report ---
Date of Service October 15, 2024 Assessment & Plan (1) Acute renal failure (ARF): (2) Influenza A: (3) BPH (benign prostatic hyperplasia): (4) Hypertension: Plan Patient 84-year-old gentleman presents to the emergency room with poor appetite and increasing weakness. Evaluation emergency room shows acute renal failure most likely combination of volume depletion/dehydration in the setting of profuse watery diarrhea and influenza A with a component of ATN due to use of lisinopril and hypotension from infection. Patient is at risk for worsening renal function electrolyte abnormalities and arrhythmias due to acute kidney injury and requires hospital level care and intervention including IV fluids and frequent laboratory monitoring Admit to the hospital for ongoing care Continue IV fluid resuscitation Hold nephrotoxins Monitor renal function Maintain Tolbert catheter. CT question some mild obstructive findings from the prostate, this point we will maintain the Tolbert to eliminate that as a question for his renal dysfunction. Patient has most likely had his influenza infection for at least 7 to 9 days. We discussed Tamiflu, I felt at this point most likely would not be beneficial to him and would potentially only cause additional issues with his renal function. Patient and son at the bedside was agreeable to holding any treatment with Tamiflu at this time Discussed advanced directives, patient is really never thought about this before and therefore this time with his request to stay full code Anticipate renal function will slowly improve as he is resuscitated and nephrotoxins held, if no significant improvement would consider nephrology consult. History of Present Illness Chief Complaint: Weakness, not eating, not drinking Primary Care Provider: NO PCP Patient is an 84-year-old gentleman lives independently with his and son in the same household. According to the son who is at the bedside everybody got "the flu last weekend." Patient's symptoms were primarily GI. Sounds like he has been having large-volume this diarrhea stools at least 2-4 times daily since last weekend. Over the course of the week he is gotten progressively weaker. His oral intake has decreased. And the last 2 days did not even come down out of the bedroom and has not been eating or drinking really anything at all. Will with the situation son brought the patient to the emergency room for evaluation. In the emergency room did test positive for influenza A. But most notably patient had acute renal failure. Referred to our service for further evaluation. Time my evaluation patient was just walking for the bathroom having having a large diarrheal stool. He has somewhat of an unsteady gait but was able to ambulate with some one-person assist. He denies any fever or chills. No cough or congestion. Really denies any abdominal pain. But is concerned that he is having the loose stools. Admits to not having much of an appetite. Did insist that he was drinking some lucas brayden. Son at the bedside states that he really has not been even drinking that much lucas brayden in the last 48 hours has really not had much oral intake at all. Patient denies any real prostate symptoms. He reports that he is still making urine and does not feel as though he has any issues emptying his bladder. He is quite alert and knows his medications and when he takes them. Son did state that he had a remote stroke in the past and does get a few events in the past mixed with current events but this is his baseline. Patient reports that the stool has been brown and watery in volume this but has not seen any blood. No vomiting. No chest pain no shortness of breath. Allergies Allergy/AdvReac Type Severity Reaction Status Date / Time No Known Allergies Allergy Verified 05/07/20 07:51 Home Medications Medication Instructions Recorded Confirmed Type aspirin 81 mg tablet,delayed 81 mg PO QAM 09/28/19 10/15/24 History release (Bettie Low Dose Aspirin) lisinopril 5 mg tablet 5 mg PO QAM 09/28/19 10/15/24 History pravastatin 10 mg tablet 10 mg PO HS 09/28/19 10/15/24 History Past Med/Surg History Problem List (Updated 10/15/24 @ 18:30 by Chilango Jimenez DO) Pneumonia (Acute) Acute renal failure (ARF) (Acute) Influenza A (Acute) Acute pyelonephritis (Acute) Encounter for pre-operative examination BPH (benign prostatic hyperplasia) Elevated PSA Urinary urgency Enlarged prostate Medical History (Updated 10/15/24 @ 18:30 by Chilango Jimenez DO) Back pain Hydrocele LEFT History of stroke 9 YR AGO - NO RESIDUAL EFFECTS Hypertension Surgical History No history of previous surgery Family History Mother FHx: breast cancer Mother Family history of diabetes mellitus Social History Smoking Status: Never smoker Second Hand Exposure: Yes ( SMOKES); Do You Dip or Chew Tobacco: No; Hx Alcohol Use: Yes (VERY RARE) Alcohol type: wine Hx Substance Use: No Preferred Language: Panamanian Communication Ability: Effective Beliefs That Will Affect Care: None Current Living Situation: Spouse Feels Safe at Home: Yes Assistive Devices: Denture - Upper, Denture - Lower and Glasses Review of Systems Review of Systems: Pertinent positive and negative review of systems as mentioned in the HPI Physical Exam Physical Exam: Constitutional: Alert, ill in appearance, nontoxic, somewhat frail HEENT: Mucous membranes moist. Sclera clear Neck: Soft, no adenopathy Lungs: Clear to auscultation, decreased, no wheezes rales or rhonchi CV: S1-S2, regular Abdomen: Soft, nontender, nondistended Extremities: No significant edema Musculoskeletal: No significant joint tenderness Neuro: No focal deficits, mild general weakness Psych: Cooperative, normal mood Results & Data Results & Data Vital Signs (Past 12 Hours) Vital Signs Temp Pulse Resp BP Pulse Ox O2 Del Method 10/15/24 16:43 93 H 10/15/24 16:23 36.4 C L 91 H 22 102/62 97 Room Air Diagnostic Findings Reviewed imaging, laboratory and diagnostic studies. Pertinent findings as be low. Personally reviewed chest x-ray, no definitive infiltrate on my interpretation Personally reviewed EKG, normal sinus rhythm without acute ST-T wave changes Respiratory viral panel positive for influenza A H1 Urinalysis unremarkable for signs of infection Sodium 133 Potassium 4.3 Bicarb 16 Anion gap 18 BUN 162 Creatinine 5.1 WBCs 9.11 Hemoglobin 14.9 Platelets 300 Code Status & VTE Plan VTE Prophylaxis Plan VTE Prophylaxis will be ordered: Yes
[2024-10-15] MEDS: cefTRIAXone SODIUM 2,000 MG/50 ML BAG IV STA (19:05)
[2024-10-15] MEDS ORDERED: POLYETHYLENE (MIRALAX) 17 GM PACK PO PRN (20:38)
[2024-10-15] MEDS ORDERED: ONDANSETRON INJ 2 MG/ML 2 ML VIAL IV PRN (20:38)
[2024-10-15] MEDS ORDERED: ACETAMINOPHEN 325 MG TAB PO PRN (20:38)
[2024-10-15] MEDS: SODIUM CHLORIDE 0.9% 1,000 ML IV SCH (22:36)
[2024-10-15] MEDS: HEPARIN SOD 5,000 UNIT/0.5 ML VIAL SQ SCH (22:36)
[2024-10-15] MEDS: PRAVASTATIN SOD 10 MG TAB PO SCH (22:36)
[2024-10-16 00:08] LABS: C Reactive Protein 12.81 mg/dl (0-0.5)
[2024-10-16 07:26] LABS: Hematocrit (blood only) 36.4 % (42.0-52.0); Hemoglobin 12.5 g/dl (14.0-18.0); Mean Corpuscular Hemoglobin 29.3 pg (25.0-34.0); Mean Corpuscular Hgb Conc 34.3 g/dL (32.0-36.0); Mean Corpuscular Volume 85.2 fL (80.0-100.0); Mean Platelet Volume 9.3 fL (9.4-12.4); Platelet Count 282 K/uL (130-400); RDW Coefficient of Variation 13.3 % (11.5-14.5); RDW Standard Deviation 41.5 fL (36.4-46.3); Red Blood Count 4.27 M/uL (4.70-6.10); White Blood Count 8.23 K/ul (4.8-10.8)
--- NOTE | 2024-10-16 07:47 | Hospitalist Progress Note ---
Date of Service October 16, 2024 Assessment & Plan (1) Acute renal failure (ARF): (2) Influenza A: (3) BPH (benign prostatic hyperplasia): (4) Hypertension: Plan Acute Renal Failure Cr 5.8 on admission, downtrending CT abd pelvis noting "Enlarged prostate gland impinging upon the urinary bladder outlet. " Tolbert in place IV fluids nephrology consulted for CHEMA, appreciate recs urology consulted for CT abd findings of enlarged prostate gland impinging on the urinary bladder outlet Aspiration Pneumonia CT chest noting aspiration in the RLL with pneumonia ("..Infectious/inflammatory bronchiolitis with evidence of small quantity aspiration in the right lower lobe. Also in the right lower lobe there are patchy acute infiltrates suggesting mild pneumonia...") No increased oxygen requirement or leukocytosis, not septic Started on Augmentin speech consult, appreciate recs Acute Metabolic Encephalopathy head CT unremarkable Delirium precautions. Frequent reorientation, avoid sedating medications likely in setting of above Continue to monitor Hypocalcemia Replete as needed Continue other meds as ordered Diet: HH DVT prophylaxis: heparin SQ Dispo: PT/OT for further recs Admission and Anticipated Discharge Date Admission Date: October 15, 2024 Subjective pt was seen with his son at bedside. per son episodes of confusion pt denied acute concerns, AAOx2 Review of Systems Review of Systems: All systems reviewed & are unremarkable except as noted in Subjective Physical Exam Physical Exam: General: Alert, oriented. No acute distress Psych: Appropriate mood and affect HEENT: NC/AT CV: RRR Resp: Breath sounds clear bilaterally, no increased effort of breathing Abdomen: Soft, nontender Extremities: No edema in lower extremities bilaterally. Results & Data Results & Data Vital Signs (Past 12 Hours) Vital Signs Temp Pulse Pulse Resp BP BP Pulse Ox 10/16/24 07:01 36.5 C 90 16 107/54 L 96 10/16/24 05:06 82 113/69 10/16/24 01:11 10/16/24 01:11 36.7 C 101 H 18 135/49 L 97 10/16/24 00:00 92 H 22 91/58 L 97 10/15/24 22:57 90 33 H 124/63 10/15/24 22:54 92 H 10/15/24 22:30 92 H 19 108/57 L 10/15/24 22:00 88 31 H 103/66 10/15/24 21:30 88 35 H 112/58 L 10/15/24 20:36 86 37 H 116/92 10/15/24 20:20 85 10/15/24 20:09 86 43 H 116/56 L O2 Del Method 10/16/24 07:01 Room Air 10/16/24 05:06 10/16/24 01:11 Room Air 10/16/24 01:11 Room Air 10/16/24 00:00 10/15/24 22:57 10/15/24 22:54 10/15/24 22:30 10/15/24 22:00 10/15/24 21:30 10/15/24 20:36 10/15/24 20:20 10/15/24 20:09
[2024-10-16 08:28] LABS: Creatinine Clr Calc Pharmacy 15.7 ml/min; Potassium 3.8 mmol/L (3.5-5.1)
[2024-10-16 09:07] LABS: BUN Creatinine Ratio 40.2 (10-20)
[2024-10-16] MEDS: ASPIRIN 81 MG ECTAB PO SCH (09:08)
[2024-10-16] MEDS: AMOXICILLIN/CLAVULANATE 500 MG TAB PO SCH (09:08)
[2024-10-16] MEDS: ADVANCED PROBIOTIC 625 MG CAPSULE PO SCH (10:01)
[2024-10-16] MEDS: CALCIUM GLUCONATE 1,000 MG/60 ML BAG IV SCH (10:01)
--- NOTE | 2024-10-16 10:19 | Nephrology Consultation ---
Date of Consultation October 16, 2024 Assessment & Plan (1) Acute renal failure (ARF): nonoliguric stage 3 CHEMA w/ baseline creatinine 1.1, improvign w/ gentle resuscitation. prerenal adn responding to fluid resuscitation whihcx he appeasr to be tolerating. UA reassuring > ketonuria -NS a s toelrated -daily bmp -cont strict I/O -cont to hold ACEI no indication for ICE SELLER here currently though will cont to follow (2) Influenza A: out of window for tamiflue (3) Enlarged prostate: urology following; as per them History of Present Illness Reason for Consultation: severe CHEMA Requesting Physician: Dr Palomino Attending Physician: Avani Palomino MD History of Present Illness 84 y/o M whom I'm asked to see for severe CHEMA was admitted last evening with same in the setting of influenza A after presenting with at least 7 days of progressive weakness and poor po intake, diarrhea. PMH includes mild HTN, HL. Baseline creatinine is 1.1 but this is based on 2022 data. His presenting creatinine was 5.1, down to 3.4 this AM after fluis resuscitation with one L NS. . denies LE edema, sob, orthopnea, new or worrisome voiding sx prior to admission (w/ ross currently), no f/c; no presyncopal sx; denies fall hx. Pt lives w/ and son. Allergies Allergy/AdvReac Type Severity Reaction Status Date / Time No Known Allergies Allergy Verified 05/07/20 07:51 Home Medications Medication Instructions Recorded Confirmed Type aspirin 81 mg tablet,delayed 81 mg PO QAM 09/28/19 10/15/24 History release (Bettie Low Dose Aspirin) lisinopril 5 mg tablet 5 mg PO QAM 09/28/19 10/15/24 History pravastatin 10 mg tablet 10 mg PO HS 09/28/19 10/15/24 History Patient History Medical History Back pain Hydrocele LEFT History of stroke 9 YR AGO - NO RESIDUAL EFFECTS Hypertension Surgical History No history of previous surgery Family History Mother FHx: breast cancer Mother Family history of diabetes mellitus Social History Smoking Status: Never smoker Second Hand Exposure: Yes ( SMOKES); Do You Dip or Chew Tobacco: No; Hx Alcohol Use: No Hx Substance Use: No Preferred Language: Spanish Communication Ability: Effective Jigman Required: No Beliefs That Will Affect Care: None Current Living Situation: Spouse and Other Current Living Situation Comment: son Feels Safe at Home: Yes Safety Concerns: Feels Safe At This Time Assistive Devices: Walker Review of Systems 2 Review of Systems: All systems reviewed & are unremarkable except as noted in HPI & below Physical Exam 2 Constitutional: well developed and well nourished Eyes: EOM intact bilaterally ENMT: Mouth: + dry oral mucous membranes Respiratory: normal respiratory effort Auscultation: + diminished lung sounds Gastrointestinal (Abdomen): Inspection/Auscultation: normal bowel sounds P ercussion/Palpation: abdomen soft; abdomen nontender Musculoskeletal: Extremities: strength 5/5 throughout Skin: no rashes, warm and dry Neurologic: reed, fluent speech, no tremor Results & Data Vital Signs (Past 12 Hours) Vital Signs Temp Pulse Pulse Resp BP BP Pulse Ox 10/16/24 08:20 10/16/24 07:01 36.5 C 90 16 107/54 L 96 10/16/24 05:06 82 113/69 10/16/24 01:11 10/16/24 01:11 36.7 C 101 H 18 135/49 L 97 10/16/24 00:00 92 H 22 91/58 L 97 10/15/24 22:57 90 33 H 124/63 10/15/24 22:54 92 H 10/15/24 22:30 92 H 19 108/57 L O2 Del Method 10/16/24 08:20 Room Air 10/16/24 07:01 Room Air 10/16/24 05:06 10/16/24 01:11 Room Air 10/16/24 01:11 Room Air 10/16/24 00:00 10/15/24 22:57 10/15/24 22:54 10/15/24 22:30 Laboratory Results 10/16/24 07:04 10/16/24 07:04 UA > 1017, cloudy, trace ketones, protein; no bacteriua Diagnostic Findings CT c/a/p non con LOWER NECK: Normal thyroid. LYMPH NODES: A few small nonenlarged lymph nodes in the mediastinum. No lymphadenopathy by size criteria. CARDIOVASCULAR: Cardiac size is enlarged. Coronary artery calcifications are noted. No aortic aneurysm. LUNGS: The trachea and central bronchi are widely patent. There are some debris in the right lower lobar airways. Peribronchial cuffing noted in the right lung base where there are also patchy infiltrates. There are no suspicious pulmonary nodules. PLEURA: There are no pleural effusions. There is no pneumothorax. LIVER: No focal lesion identified. GALLBLADDER/BILIARY: Unremarkable gallbladder. No abnormal biliary dilatation. SPLEEN: Unremarkable. PANCREAS: Unremarkable. ADRENALS: Unremarkable. KIDNEYS: Mild perinephric stranding bilaterally.. No stones or hydronephrosis identified. PERITONEUM/RETROPERITONEUM. No lymphadenopathy by size criteria. No aortic aneurysm. Mild atherosclerosis. GASTROINTESTINAL: No obstruction. Moderate size hiatal hernia. Extensive colonic diverticulosis of the rectosigmoid without overt diverticulitis. Normal appendix is identified. REPRODUCTIVE: Enlarged prostate gland with coarse calcifications, seemingly impinging upon the urinary bladder outlet. URINARY BLADDER: Mildly distended. Moderate wall thickening and mild perivesical inflammation. BONES: No acute findings. IMPRESSION: Infectious/inflammatory bronchiolitis with evidence of small quantity aspiration in the right lower lobe. Also in the right lower lobe there are patchy acute infiltrates suggesting mild pneumonia. Moderate size hiatal hernia. Enlarged prostate gland impinging upon the urinary bladder outlet.
--- NOTE | 2024-10-16 11:48 | Urology Consultation ---
Date of Consultation October 16, 2024 Assessment & Plan (1) Enlarged prostate: (2) Acute renal failure (ARF): 84-year-old male influenza A and acute renal failure. Patient is afebrile with stable vitals Labs reviewedcreatinine downtrending, 3.41 today UA was not suspicious for infection CHEMA may be due to dehydration/GI losses Renal function improving with fluid resuscitation Continue to trend labs Nephrology consult pending Tolbert currently in place, maintain Tolbert catheter for now CT imaging shows no hydronephrosis; enlarged prostate with possible bladder outlet obstruction He denies bothersome LUTS at baseline Can consider addition of Tamsulosin Can consider voiding trial while inpatient when he clinically improves will follow, please contact our service with any additional questions/concerns History of Present Illness Attending Physician: Avani Palomino MD History of Present Illness This is an 84-year-old male who has followed with urology in the past for BPH with LUTS and prostate cancer screening. He presented to the emergency department on 10/15/2024 for evaluation of at least 1 week history of upper respiratory symptoms, progressive weakness, diarrhea, and poor PO intake. In ED, he tested positive for influenza A. Lab work notable for severe CHEMA with creatinine of 5.18. He was admitted for influenza A and acute renal failure. Urology is consulted for enlarged prostate, CHEMA. Workup included CT abdomen pelvis without con. CT imaging reviewed and showed no stones or hydronephrosis, bilateral perinephric stranding. Enlarged prostate with calcifications. Tolbert catheter was placed in the emergency department. Urinalysis showed 6-10 WBC, 6-10 RBC, negative for bacteria. Labs today reviewedcreatinine 3.41, WBC 8.23, hemoglobin 12.5. Patient seen and examined at bedside this morning. He is awake and resting in bed. Tolbert intact. Denies discomfort. Continues to feel fatigue and weakness. Denies bothersome lower urinary tract symptoms at baseline. Denies dysuria or hematuria. Denies nausea, vomiting, fever or chills at present. Previously followed with Dr. Richards. He is not on any BPH medications. Allergies Allergy/AdvReac Type Severity Reaction Status Date / Time No Known Allergies Allergy Verified 05/07/20 07:51 Home Medications Medication Instructions Recorded Confirmed Type aspirin 81 mg tablet,delayed 81 mg PO QAM 09/28/19 10/15/24 History release (Bettie Low Dose Aspirin) lisinopril 5 mg tablet 5 mg PO QAM 09/28/19 10/15/24 History pravastatin 10 mg tablet 10 mg PO HS 09/28/19 10/15/24 History Patient History Medical History Back pain Hydrocele LEFT History of stroke 9 YR AGO - NO RESIDUAL EFFECTS Hypertension Surgical History No history of previous surgery Family History Mother FHx: breast cancer Mother Family history of diabetes mellitus Social History Smoking Status: Never smoker Second Hand Exposure: Yes ( SMOKES); Do You Dip or Chew Tobacco: No; Hx Alcohol Use: No Hx Substance Use: No Preferred Language: Amharic Communication Ability: Effective Hatchery Supervisor Required: No Beliefs That Will Affect Care: None Current Living Situation: Spouse and Other Current Living Situation Comment: son Feels Safe at Home: Yes Safety Concerns: Feels Safe At This Time Assistive Devices: Denture - Upper, Denture - Lower and Glasses Review of Systems Review of Systems: All systems reviewed & are unremarkable except as noted in HPI & below Physical Exam Constitutional: well developed and well nourished; no acute distress Respiratory: normal respiratory effort; no respiratory distress and no labored breathing Gastrointestinal (Abdomen): Inspection/Auscultation: abdomen normal to inspection Musculoskeletal: Head/Neck/Chest: normocephalic Neurologic: moves all extremities and awake Psychiatric: Orientation: alert and oriented x 3 Genitourinary: Tolbert draining clear yellow Results & Data Vital Signs (Past 12 Hours) Vital Signs Temp Pulse Pulse Resp BP BP Pulse Ox 10/16/24 08:20 10/16/24 07:01 36.5 C 90 16 107/54 L 96 10/16/24 05:06 82 113/69 10/16/24 01:11 10/16/24 01:11 36.7 C 101 H 18 135/49 L 97 10/16/24 00:00 92 H 22 91/58 L 97 O2 Del Method 10/16/24 08:20 Room Air 10/16/24 07:01 Room Air 10/16/24 05:06 10/16/24 01:11 Room Air 10/16/24 01:11 Room Air 10/16/24 00:00 PG Care Time/CCT Total # of Minutes Spent Total Time Spent with Patient: Total time spent is greater than 50% in coordination of care (as documented) at patient's floor/unit and/or counseling patient: Coding Level of Care Code 24944 INT INP/OBS CARE 2/55MIN Diagnoses Enlarged prostate N40.0 Acute renal failure (ARF) N17.9
--- NOTE | 2024-10-16 15:27 | Electrocardiogram Report ---
Test Reason : Blood Pressure : */* mmHG Vent. Rate : 89 BPM Atrial Rate : 89 BPM P-R Int : 202 ms QRS Dur : 88 ms QT Int : 350 ms P-R-T Axes : 31 -12 49 degrees QTcB Int : 425 ms Normal sinus rhythm Normal ECG When compared with ECG of 03-Oct-2019 08:50, No significant change was found Confirmed by Chilango Mae ([id number]) on 10/16/2024 3:27:13 PM Referred By: REFERRED SELF Confirmed By: Chilango Mae
--- NOTE | 2024-10-16 16:17 | CT Scan Report ---
EXAM: CT Head Without Intravenous Contrast INDICATION: Other mental status TECHNIQUE: Axial computed tomography images of the head/brain without intravenous contrast. Sagittal and/or coronal reformats are provided. Sagittal and coronal reformatted images were created and reviewed. This CT exam was performed using one or more of the following dose reduction techniques: automated exposure control, adjustment of the mA and/or kV according to patient size, and/or use of iterative reconstruction technique. COMPARISON: No relevant prior studies available. FINDINGS: Limitations: None. Brain and extra-axial spaces: There is age appropriate cortical atrophy and chronic ischemic periventricular white matter hypodensity. No acute infarct, hemorrhage or mass noted. 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 Bones/joints: No acute changes. Soft tissues: No significant abnormality noted. Vasculature: There is dense intracranial atherosclerosis. Sinuses: No layering fluid in the visualized portions of the paranasal sinuses. Mastoid air cells: No mastoid effusion. Orbits: No significant abnormality noted. IMPRESSION: Cerebral atrophy. No acute changes. ACT 112: Negative or not required by law. Electronically signed by Nolvia Arnold 10-16-2024 4:17 PM
[2024-10-16] MEDS: guaiFENesin 600 MG TABCR PO SCH (22:00)
[2024-10-16] MEDS: BENZONATATE 100 MG CAPSULE PO PRN (22:00)
[2024-10-17 08:21] LABS: Basophils # (auto) 0.02 K/uL (0.00-0.20); Basophils % (auto) 0.2 %; Eosinophils # (auto) 0.06 K/uL (0.00-0.50); Eosinophils % (auto) 0.7 %; Hematocrit (blood only) 37.4 % (42.0-52.0); Hemoglobin 12.6 g/dl (14.0-18.0); Immature Granulocytes # (auto) 0.09 K/uL (0.01-0.20); Immature Granulocytes % (auto) 1.1 %; Lymphocytes # (auto) 0.82 K/uL (1.20-3.40); Lymphocytes % (auto) 9.8 %; Mean Corpuscular Hemoglobin 29.1 pg (25.0-34.0); Mean Corpuscular Hgb Conc 33.7 g/dL (32.0-36.0); Mean Corpuscular Volume 86.4 fL (80.0-100.0); Mean Platelet Volume 9.2 fL (9.4-12.4); Monocytes # (auto) 0.98 K/uL (0.11-0.59); Monocytes % (auto) 11.8 %; Neutrophils # (auto) 6.36 K/uL (1.40-6.50); Neutrophils % (auto) 76.4 %; Platelet Count 296 K/uL (130-400); RDW Coefficient of Variation 13.6 % (11.5-14.5); RDW Standard Deviation 43.1 fL (36.4-46.3); Red Blood Count 4.33 M/uL (4.70-6.10); White Blood Count 8.33 K/ul (4.8-10.8)
[2024-10-17 08:43] LABS: BUN Creatinine Ratio 44.6 (10-20); Calcium 8.2 mg/dl (8.6-10.3); Creatinine Clr Calc Pharmacy 30.3 ml/min; Magnesium 2.1 mg/dl (1.7-2.4); Phosphorus 3.2 mg/dl (2.5-4.9); Potassium 4.4 mmol/L (3.5-5.1)
--- NOTE | 2024-10-17 11:07 | Nephrology Progress Note ---
Date of Service October 17, 2024 Assessment & Plan (1) Acute renal failure (ARF): Plan: further improving nonoliguric stage 3 CHEMA w/ baseline creatinine 1.1, improving w/ gentle resuscitation. creatinine 1.8 today and BUN 79. tolerating IVF so far UA reassuring > ketonuria noted also w/ NAGMA in the wake of NS -changed IVF to 1/2 NS w/ 50 mEq K x 1L >> hypotonic slightly so should help sNa as well -f/u pending stool studies -from a neph standpoint could consider voiding trial -daily bmp -cont strict I/O -cont to hold ACEI no indication for [facility] MANAGER discussion I spent 15 min updating son about neph status, clinical status; connected him w/ RN for the pt. Care coordinated with Dr Palomino re son's thoughts pt needs rehab given L leg/stairs at home, volume status/cough/IVF/CXR, ISS/flutter via TText; we are in agreement. (2) Influenza A: Plan: out of window for tamiflu; on abtx for aspiration PNA >not hypoxic but thick cough on inspiration and asymmetric lung exam >>CXR 1600 > if issues, stop IVF >>asked RN to encourage ISS/flutter (3) Enlarged prostate: Plan: urology following; as per them Admission and Anticipated Discharge Date Admission Date: October 15, 2024 Subjective clinically improving; denies sob, n/v, edema, gen weakness, uncontrolled pain. eager for d/c. does endorse some diarrhea still. states he's eating well. son reports concerns about pt getting up stairs at home; on normal day drags his L leg w/ ambulation post stroke; dislikes/avoids doctors since stroke. Review of Systems 2 Review of Systems: All systems reviewed & are unremarkable except as noted in Subjective Physical Exam 2 Constitutional: well developed and well nourished Eyes: EOM intact bilaterally ENMT: Mouth: + dry oral mucous membranes Respiratory: normal respiratory effort and + cough (thick cough w/ inspiration) Auscultation: + diminished lung sounds (ford R lung lozoya mid/bottom) Gastrointestinal (Abdomen): Inspection/Auscultation: normal bowel sounds P ercussion/Palpation: abdomen soft; abdomen nontender Musculoskeletal: Extremities: strength 5/5 throughout Skin: no rashes, warm and dry Neurologic: reed, fluent speech, no tremor Results & Data Vital Signs (Past 12 Hours) Vital Signs Temp Pulse Resp BP Pulse Ox O2 Del Method 10/17/24 07:35 Room Air 10/17/24 07:20 36.9 C 81 18 118/63 93 Room Air Laboratory Results 10/17/24 07:57 10/17/24 07:57
[2024-10-17] MEDS: SODIUM BICARBONATE 8.4% 50 MEQ in SODIUM CHLORIDE 0.45 % 1,000 ML IV SCH (11:55)
[2024-10-17] MEDS: CALCIUM CARBONATE 500 MG CHEWABLE TAB PO PRN (12:02)
[2024-10-17 12:22] LABS: Adenovirus F 40/41 PCR Not Detected (NotDetected); Astrovirus PCR Not Detected (NotDetected); Campylobacter PCR Not Detected (NotDetected); Cryptosporidium PCR Not Detected (NotDetected); Cyclospora cayetanensis PCR Not Detected (NotDetected); Entamoeba histolytica PCR Not Detected (NotDetected); Enteroaggregative E.coli(EAEC) Not Detected (NotDetected); Enteropathogenic E.coli (EPEC) Not Detected (NotDetected); Enterotoxigenic E.coli (ETEC) Not Detected (NotDetected); Giardia lamblia PCR Not Detected (NotDetected); Norovirus GI/GII PCR Not Detected (NotDetected); Plesiomonas shigelloides PCR Not Detected (NotDetected); Rotavirus A PCR Not Detected (NotDetected); Salmonella PCR Not Detected (NotDetected); Sapovirus PCR Not Detected (NotDetected); Shiga-like Toxin E.coli (STEC) Not Detected (NotDetected); Shigella/Enteroinvasive E.coli Not Detected (NotDetected); Vibrio cholerae PCR Not Detected (NotDetected); Vibrio species PCR Not Detected (NotDetected); Yersinia enterocolitica PCR Not Detected (NotDetected)
--- NOTE | 2024-10-17 13:51 | Urology Progress Note ---
Date of Service October 17, 2024 Assessment & Plan (1) BPH (benign prostatic hyperplasia): (2) Acute renal failure (ARF): Plan: Follow-up of BPH, CHEMA Patient afebrile with stable vitals Labs reviewedcreatinine improved to 1.77 Renal function improving with fluid resuscitation, continue to trend labs Tolbert in place Can perform voiding trial prior to discharge from perspective Continue supportive care medical management per hospital medicine service Will arrange outpatient follow-up with urology will sign off, please contact our service with any additional questions or concerns Admission and Anticipated Discharge Date Admission Date: October 15, 2024 Subjective Patient seen and examined at bedside this afternoon. He is awake and sitting up in bedside chair. Reports he is feeling better today. Continues with cough. Some diarrhea still. No fever or chills. Tolbert intact. Creatinine 1.77 today. Review of Systems Constitutional: as per Subjective / HPI Genitourinary: + as per Subjective / HPI Physical Exam Constitutional: no acute distress Respiratory: + cough; no respiratory distress and no labored breathing Gastrointestinal (Abdomen): Inspection/Auscultation: abdomen normal to inspection Musculoskeletal: Head/Neck/Chest: normocephalic Neurologic: moves all extremities and awake Psychiatric: Orientation: alert and oriented x 3 Genitourinary: Tolbert draining clear yellow Results & Data Vital Signs (Past 12 Hours) Vital Signs Temp Pulse Resp BP Pulse Ox O2 Del Method 10/17/24 07:35 Room Air 10/17/24 07:20 36.9 C 81 18 118/63 93 Room Air PG Care Time/CCT Total # of Minutes Spent Total Time Spent with Patient: Total time spent is greater than 50% in coordination of care (as documented) at patient's floor/unit and/or counseling patient: Coding Level of Care Code 31958 SUB INP/OBS CARE 09/16MIN Diagnoses BPH (benign prostatic hyperplasia) N40.0 Acute renal failure (ARF) N17.9
[2024-10-17] MEDS ORDERED: ALBUTEROL 0.083% NEBU SOLN 3 ML VIAL NEB PRN (14:09)
[2024-10-17] MEDS: TAMSULOSIN HCL 0.4 MG CAP PO SCH (15:08)
--- NOTE | 2024-10-17 16:03 | Hospitalist Progress Note ---
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 Patient ultimately found to have acute renal failure and influenza A on admission. CTAP with inflammatory changes of the urinary bladder which may be due to superimposed cystitis. In addition, mild perinephric stranding noted bilaterally on CTAP. UA without evidence of LE or bacteria. Cr 5.18 on admission. Appreciate nephrology consult. Acute renal failure 2/2 combination of volume depletion/dehydration ISO diarrhea. Responding well to IVF. Cr improving to 1.77 today (baseline Cr around 1.2); continue strict I&Os. Tolbert catheter in place. Stool studies negative; diarrhea slowly improving. (2) Influenza A: (3) Aspiration pneumonia: Plan: Out of window to initiate Tamiflu. CXR on admission noted RLL atelectasis/airspace disease. Chest CT was obtained and revealed infectious/inflammatory bronchiolitis with evidence of small quantity aspiration in the RLL. Also in the RLL there were noted patchy acute infiltrates suggesting mild PNA. No supplemental O2 requirement. No leukocytosis. Procalcitonin negative. No evidence of sepsis. Augmentin started on 10/16/24. Appreciate speech therapy consult; no significant difficulty with swallowing identified. Do not suspect chronic aspiration per speech therapy. Continue regular diet/thin liquids. Aspiration precautions. If he were to develop any symptoms of dysphagia, a video swallow study can be considered per speech therapy. Repeat CXR done today given dry/hacking cough ISO IVF replacement for ARF as per above. Cough not very productive. Repeat CXR unremarkable. Encourage ISP/flutter valve. (4) Acute metabolic encephalopathy: Plan: Son reported episodes of confusion yesterday. Head CT obtained and was grossly unremarkable; did note cerebral atrophy. Likely 2/2 above. Possible underlying mild dementia. Mental status improved today per son. Continue with delirium prevention measures: raising blinds during the day, closing at night, frequent re-orientation, contact with family/friends, explaining procedures/nursing care measures prior to physical contact, correct any hearing and visual impairments. (5) BPH (benign prostatic hyperplasia): Plan: CTAP also noted an enlarged prostate gland impinging upon the urinary bladder outlet. Appreciate urology consult regarding this finding. Maintain Tolbert catheter for now - allowing for strict I&Os ISO acute renal failure as per above. Patient without bothersome LUTS @ baseline. Flomax added on per urology's recommendation. Can perform voiding trial prior to discharge from perspective; o/p follow-up with urology to be arranged. (6) Hypertension: Plan: BP stable but still on softer side. Continue to hold home lisinopril for the time being. (7) Hyperlipidemia: Plan: Chronic, stable. Continue pravastatin and ASA. DVT Prophylaxis: SQ Heparin Code Status: FULL CODE PCP: Yari Palafox MD Disposition: PT/OT recommending rehab placement. CM working with the patient's son/POA, Dilip Ventura, to arrange this. Patient seen in collaboration with Dr. Palomino. Please see addendum. I spent a total of 45 minutes coordinating, documenting, and providing care for this patient excluding time spent in the performance of separately billed services or time spent by another provider/QHP. This included personally reviewing all current laboratories and imaging studies, medical reconciliation, outpatient chart review and discussion with specialists. This chart was completed in part utilizing Speech Voice Recognition Software. Grammatical errors, random word insertions, pronoun errors, and incomplete sentences are an occasional consequence of this system due to software limitations, ambient noise, and hardware issues. Any formal questions or concerns about the content, text, or information contained within the body of this dictation should be directly addressed to the provider for clarification. Admission and Anticipated Discharge Date Admission Date: October 15, 2024 Supervising Physician Co-Signing Physician Notes Pt was seen and examined by myself, Avani Palomino MD on the day of service. Care was coordinated with Carolyn Escalante PA-C. 84yoM admitted with a severe CHEMA and noted prostatic obstruction on imaging, generalized weakness. Possible aspiration pneumonia Acute encephalopathy Sitting in chair near the bed Denied acute concerns. CHEMA improving Appreciate Nephrology and Urology recs PT/OT recommending acute rehab placement Otherwise as above. I spent a total [id number] coordinating, documenting, and providing care for this patient excluding time spent in the performance of separately billed services Subjective NAEO. Patient sitting up in bed. A&Ox2 during conversation. Endorses dry/hacking cough noted with very minimal sputum production if any. Denies any SOB or chest pain. He is endorsing some reflux and is requesting Tums. Still has diarrhea but is improving. Ate breakfast this morning. Review of Systems Review of Systems: At least ten systems reviewed and negative, except as noted in the subjective section. Physical Exam Physical Exam: General: NAD, sitting up in bed, pleasant, conversing appropriately. A+Ox3. HEENT: Normocephalic, atraumatic. Conjunctivae normal. External ear/nose normal, oropharynx normal. Respiratory: Normal respiratory effort. Diminished breath sounds throughout. Minimal wheezing. On RA. Cardiovascular: Regular rate, rhythm, normal peripheral pulses, no BLE edema. Abdomen/GI: Normal bowel sounds, soft, nondistended, nontender to palpation in all quadrants. : Tolbert catheter intact and cl Extremities/Musculoskeletal: No cyanosis or clubbing, extremities motor strength intact, moves all extremities. Neurologic: No overt focal deficits, CN's II-XI not formally tested but appear grossly intact bilaterally. Results & Data Results & Data Vital Signs (Past 12 Hours) Vital Signs Temp Pulse Resp BP Pulse Ox O2 Del Method 10/17/24 15:50 36.6 C 80 16 138/75 98 Room Air 10/17/24 07:35 Room Air 10/17/24 07:20 36.9 C 81 18 118/63 93 Room Air Laboratory Results Short CBC 10/17/24 Range/Units 07:57 WBC 8.33 (4.8-10.8) K/ul Hgb 12.6 L (14.0-18.0) g/dl Hct 37.4 L (42.0-52.0) % Plt Count 296 (130-400) K/uL BMP 10/17/24 07:57 Sodium 145 Potassium 4.4 Chloride 118 H Carbon Dioxide 18 L BUN 79 H D Creatinine 1.77 H D Glucose 98 Calcium 8.2 L (1) Acute renal failure (ARF) Acute renal failure type: unspecified Qualified Code(s): N17.9 - Acute kidney failure, unspecified (3) Aspiration pneumonia Aspiration pneumonia type: unspecified Laterality: right Lung location: lower lobe of lung Qualified Code(s): J69.0 - Pneumonitis due to inhalation of food and vomit (5) BPH (benign prostatic hyperplasia) Lower urinary tract symptom presence: unspecified whether lower urinary tract symptoms present Qualified Code(s): N40.0 - Benign prostatic hyperplasia without lower urinary tract symptoms (6) Hypertension Hypertension type: unspecified Qualified Code(s): I10 - Essential (primary) hypertension (7) Hyperlipidemia Hyperlipidemia type: unspecified Qualified Code(s): E78.5 - Hyperlipidemia, unspecified
--- NOTE | 2024-10-17 16:31 | XRay Report ---
INDICATION: Chest pain. TECHNIQUE: Frontal radiograph of the chest. COMPARISON: Radiograph from 10/15/2024. FINDINGS: Mild cardiomegaly. Pulmonary vasculature appear within normal limits. No infiltrate, pleural effusion or pneumothorax. No acute osseous abnormality evident. IMPRESSION: No acute cardiopulmonary process. Electronically signed by Len Ventura 10-17-2024 4:30 PM
--- NOTE | 2024-10-18 07:10 | Hospitalist Progress Note ---
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 Patient ultimately found to have acute renal failure and influenza A on admission. CTAP with inflammatory changes of the urinary bladder which may be due to superimposed cystitis. In addition, mild perinephric stranding noted bilaterally on CTAP. UA without evidence of LE or bacteria. Cr 5.18 on admission. Appreciate nephrology consult. Acute renal failure 2/2 combination of volume depletion/dehydration ISO diarrhea. Responding well to IVF. Cr improving to 1.77 today (baseline Cr around 1.2); continue strict I&Os. Tolbert catheter in place. Stool studies negative; diarrhea slowly improving. (2) Influenza A: (3) Aspiration pneumonia: Plan: Out of window to initiate Tamiflu. CXR on admission noted RLL atelectasis/airspace disease. Chest CT was obtained and revealed infectious/inflammatory bronchiolitis with evidence of small quantity aspiration in the RLL. Also in the RLL there were noted patchy acute infiltrates suggesting mild PNA. No supplemental O2 requirement. No leukocytosis. Procalcitonin negative. No evidence of sepsis. Augmentin started on 10/16/24. Appreciate speech therapy consult; no significant difficulty with swallowing identified. Do not suspect chronic aspiration per speech therapy. Continue regular diet/thin liquids. Aspiration precautions. If he were to develop any symptoms of dysphagia, a video swallow study can be considered per speech therapy. Repeat CXR done today given dry/hacking cough ISO IVF replacement for ARF as per above. Cough not very productive. Repeat CXR unremarkable. Encourage ISP/flutter valve. (4) Acute metabolic encephalopathy: Plan: Son reported episodes of confusion yesterday. Head CT obtained and was grossly unremarkable; did note cerebral atrophy. Likely 2/2 above. Possible underlying mild dementia. Mental status improved today per son. Continue with delirium prevention measures: raising blinds during the day, closing at night, frequent re-orientation, contact with family/friends, explaining procedures/nursing care measures prior to physical contact, correct any hearing and visual impairments. (5) BPH (benign prostatic hyperplasia): Plan: CTAP also noted an enlarged prostate gland impinging upon the urinary bladder outlet. Appreciate urology consult regarding this finding. Maintain Tolbert catheter for now - allowing for strict I&Os ISO acute renal failure as per above. Patient without bothersome LUTS @ baseline. Flomax added on per urology's recommendation. Can perform voiding trial prior to discharge from perspective; o/p follow-up with urology to be arranged. (6) Hypertension: Plan: BP stable but still on softer side. Continue to hold home lisinopril for the time being. (7) Hyperlipidemia: Plan: Chronic, stable. Continue pravastatin and ASA. DVT Prophylaxis: SQ Heparin Code Status: FULL CODE PCP: Yari Palafox MD Disposition: PT/OT recommending rehab placement. CM working with the patient's son/POA, Dilip Ventura, to arrange this. Patient seen in collaboration with . Please see addendum. I spent a total of minutes coordinating, documenting, and providing care for this patient excluding time spent in the performance of separately billed services or time spent by another provider/QHP. This included personally reviewing all current laboratories and imaging studies, medical reconciliation, outpatient chart review and discussion with specialists. This chart was completed in part utilizing Speech Voice Recognition Software. Grammatical errors, random word insertions, pronoun errors, and incomplete sentences are an occasional consequence of this system due to software limitations, ambient noise, and hardware issues. Any formal questions or concerns about the content, text, or information contained within the body of this dictation should be directly addressed to the provider for clarification. Admission and Anticipated Discharge Date Admission Date: October 15, 2024 Results & Data Results & Data Vital Signs (Past 12 Hours) Vital Signs Temp Pulse Resp BP Pulse Ox O2 Del Method 10/17/24 21:06 36.7 C 88 18 139/69 97 Room Air 10/17/24 21:00 Room Air (1) Acute renal failure (ARF) Acute renal failure type: unspecified Qualified Code(s): N17.9 - Acute kidney failure, unspecified (3) Aspiration pneumonia Aspiration pneumonia type: unspecified Laterality: right Lung location: lower lobe of lung Qualified Code(s): J69.0 - Pneumonitis due to inhalation of food and vomit (5) BPH (benign prostatic hyperplasia) Lower urinary tract symptom presence: unspecified whether lower urinary tract symptoms present Qualified Code(s): N40.0 - Benign prostatic hyperplasia without lower urinary tract symptoms (6) Hypertension Hypertension type: unspecified Qualified Code(s): I10 - Essential (primary) hypertension (7) Hyperlipidemia Hyperlipidemia type: unspecified Qualified Code(s): E78.5 - Hyperlipidemia, unspecified
[2024-10-18 07:47] VITALS: BP 129/68; PULSE 86; RESP 16; TEMP 98.4; O2SAT 94
[2024-10-18 08:12] LABS: Basophils # (auto) 0.03 K/uL (0.00-0.20); Basophils % (auto) 0.3 %; Eosinophils # (auto) 0.08 K/uL (0.00-0.50); Eosinophils % (auto) 0.9 %; Hematocrit (blood only) 34.1 % (42.0-52.0); Hemoglobin 11.6 g/dl (14.0-18.0); Immature Granulocytes # (auto) 0.08 K/uL (0.01-0.20); Immature Granulocytes % (auto) 0.9 %; Lymphocytes % (auto) 12.2 %; Mean Corpuscular Hemoglobin 29.4 pg (25.0-34.0); Mean Corpuscular Volume 86.3 fL (80.0-100.0); Mean Platelet Volume 9.1 fL (9.4-12.4); Monocytes # (auto) 0.97 K/uL (0.11-0.59); Monocytes % (auto) 10.7 %; Neutrophils # (auto) 6.78 K/uL (1.40-6.50); Platelet Count 306 K/uL (130-400); RDW Coefficient of Variation 13.4 % (11.5-14.5); RDW Standard Deviation 42.5 fL (36.4-46.3); Red Blood Count 3.95 M/uL (4.70-6.10); White Blood Count 9.04 K/ul (4.8-10.8)
[2024-10-18 08:16] LABS: BUN Creatinine Ratio 29.7 (10-20); Calcium 8.1 mg/dl (8.6-10.3); Creatinine Clr Calc Pharmacy 38.9 ml/min; Magnesium 1.6 mg/dl (1.7-2.4); Phosphorus 2.1 mg/dl (2.5-4.9)
[2024-10-18] MEDS: MAGNESIUM SULFATE / D5W 1 GM/100 ML BAG IV SCH (08:45)
--- NOTE | 2024-10-18 10:16 | Nephrology Progress Note ---
Date of Service October 18, 2024 Assessment & Plan (1) Acute renal failure (ARF): Plan: further improving/now nearly resolved nonoliguric stage 3 CHEMA w/ baseline creatinine 1.1, improving w/ gentle resuscitation. creatinine 1.4 today and BUN 41. 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 3 CKD baseline creatinine 1.1 D/C MEDS: continue to hold lisinopril at d/c; start slo-mag once daily F/U LABS: bmp, mag weekly at facility x 2; on week 2, pls order UACM, ACR as well; all labs ordered by facility OTHER F/U CARE: BP check MWF at facility, check orthostatics once weekly at facility; no special diet needed; encourage incentive spirometry and flutter valve F/U APPTS: hospital d/c appt w/ me in [facility] preferred in 1 week; pls send facility log of BP, orthostatics Care coordinated w/ LISSETH Escalante re ross removal, d/c recs above in person and via TText; we are in agreement. (2) Influenza A: Plan: out of window for tamiflu; on abtx for aspiration PNA >not hypoxic but thick cough on deep inspiration >to encourage ISS/flutter (3) Enlarged prostate: Plan: urology following; as per them Admission and Anticipated Discharge Date Admission Date: October 15, 2024 Subjective for possibel d/c to [facility] today. no acute interval events. using flutter valve/iSS w/ prompting. denies sob, cough, n/v, D. Review of Systems 2 Review of Systems: All systems reviewed & are unremarkable except as noted in Subjective Physical Exam 2 Constitutional: well developed (sitting up in chair on RA) and well nourished Eyes: EOM intact bilaterally ENMT: Mouth: + dry oral mucous membranes Respiratory: normal respiratory effort and + cough (thick cough w/ deep inspiration) Auscultation: + diminished lung sounds Gastrointestinal (Abdomen): Inspection/Auscultation: normal bowel sounds P ercussion/Palpation: abdomen soft; abdomen nontender Musculoskeletal: Extremities: strength 5/5 throughout Skin: no rashes, warm and dry Results & Data Vital Signs (Past 12 Hours) Vital Signs Temp Pulse Resp BP Pulse Ox O2 Del Method 10/18/24 07:48 Room Air 10/18/24 07:46 36.9 C 86 16 129/68 94 Room Air Laboratory Results 10/18/24 07:32 10/18/24 07:32 (1) Acute renal failure (ARF) Acute renal failure type: unspecified Qualified Code(s): N17.9 - Acute kidney failure, unspecified
--- NOTE | 2024-10-18 11:48 | Discharge Summary ---
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 Patient ultimately found to have acute renal failure and influenza A on admission. CTAP with inflammatory changes of the urinary bladder which may be due to superimposed cystitis. In addition, mild perinephric stranding noted bilaterally on CTAP. UA without evidence of LE or bacteria. Cr 5.18 on admission. Appreciate nephrology consult. Acute renal failure 2/2 combination of volume depletion/dehydration ISO diarrhea. Responding well to IVF. Cr further improving/nearly resolved at 1.38 on discharge (baseline Cr around 1.2); Tolbert catheter removed prior to d/c as per below. FINAL NEPHRO D/C RECS: * Continue to hold lisinopril on discharge; start SloMag once daily. * F/U Labs - BMP and Mag weekly at facility x 2; on week 2, please order UACM, ACR as well. * Other F/U Care - BP check MWF at facility, check orthostatic once weekly at facility; no special diet needed. * F/U Appt - Hospital d/c follow-up appt with Dr. Castro in [facility] in 1 week; please send facility log of BP, or thostatics. (2) Influenza A: (3) Aspiration pneumonia: Out of window to initiate Tamiflu. CXR on admission noted RLL atelectasis/airspace disease. Chest CT was obtained and revealed infectious/inflammatory bronchiolitis with evidence of small quantity aspiration in the RLL. Also in the RLL there were noted patchy acute infiltrates suggesting mild PNA. No supplemental O2 requirement. No leukocytosis. Procalcitonin negative. No evidence of sepsis. Augmentin started on 10/16/24. Appreciate speech therapy consult; no significant difficulty with swallowing identified. Do not suspect chronic aspiration per speech therapy. If he were to develop any symptoms of dysphagia, a video swallow study would be warranted. Discharging with prescription for Augmentin to complete full 5-day course. (4) Acute metabolic encephalopathy: Son reported episodes of confusion during admission. Head CT obtained and was grossly unremarkable; did note cerebral atrophy. Likely delirium 2/2 above. Possible underlying dementia. Mentation status continues to improve - appears to be at baseline mentation level on discharge. (5) BPH (benign prostatic hyperplasia): CTAP also noted an enlarged prostate gland impinging upon the urinary bladder outlet. Appreciate urology consult. Had Tolbert catheter placed ISO acute renal failure as per above for strict I&Os. Tolbert catheter removed prior to d/c with successful voiding trial. Flomax added on. Outpatient follow-up with urology to be arranged. (6) Hypertension: BP stable but still on softer side. Continue to hold lisinopril on discharge as recommended by nephrology. (7) Hyperlipidemia: Chronic, stable. Continue pravastatin and ASA. PCP: Yari Palafox MD Disposition: Patient is being discharged in stable condition to [facility] for rehabilitation services. Patient seen in collaboration with Dr. Phillips. Please see addendum. I spent a total of 60 minutes coordinating, documenting, and providing care for this patient excluding time spent in the performance of separately billed services or time spent by another provider/QHP. This included personally reviewing all current laboratories and imaging studies, medical reconciliation, outpatient chart review and discussion with specialists. This chart was completed in part utilizing Speech Voice Recognition Software. Grammatical errors, random word insertions, pronoun errors, and incomplete sentences are an occasional consequence of this system due to software li mitations, ambient noise, and hardware issues. Any formal questions or concerns about the content, text, or information contained within the body of this dictation should be directly addressed to the provider for clarification. Notes For Next Care Provider Continue to hold lisinopril on discharge; started SloMag once daily. F/U Labs - BMP and Mag weekly at facility x 2; on week 2, please order UACM, ACR as well. Other F/U Care - BP check MWF at facility, check orthostatic once weekly at facility; no special diet needed. F/U Appt - Hospital d/c follow-up appt with Dr. Castro in [facility] in 1 week; please send facility log of BP, orthostatics. Medication Changes From Visit Lisinopril on hold per nephrology's recommendation ISO resolving acute renal failure. Augmentin 500mg BID x 5 more doses with the NEXT dose being THIS EVENING. Ji added on. Admission HPI Per Admitting Provider Patient is an 84-year-old gentleman lives independently with his and son in the same household. According to the son who is at the bedside everybody got "the flu last weekend." Patient's symptoms were primarily GI. Sounds like he has been having large-volume this diarrhea stools at least 2-4 times daily since last weekend. Over the course of the week he is gotten progressively weaker. His oral intake has decreased. And the last 2 days did not even come down out of the bedroom and has not been eating or drinking really anything at all. Will with the situation son brought the patient to the emergency room for evaluation. In the emergency room did test positive for influenza A. But most notably patient had acute renal failure. Referred to our service for further evaluation. Time my evaluation patient was just walking for the bathroom having having a large diarrheal stool. He has somewhat of an unsteady gait but was able to ambulate with some one-person assist. He denies any fever or chills. No cough or congestion. Really denies any abdominal pain. But is concerned that he is having the loose stools. Admits to not having much of an appetite. Did insist that he was drinking some lucas brayden. Son at the bedside states that he really has not been even drinking that much lucas brayden in the last 48 hours has really not had much oral intake at all. Patient denies any real prostate symptoms. He reports that he is still making urine and does not feel as though he has any issues emptying his bladder. He is quite alert and knows his medications and when he takes them. Son did state that he had a remote stroke in the past and does get a few events in the past mixed with current events but this is his baseline. Patient reports that the stool has been brown and watery in volume this but has not seen any blood. No vomiting. No chest pain no shortness of breath. Admission Exam Per Admitting Provider Constitutional: Alert, ill in appearance, nontoxic, somewhat frail HEENT: Mucous membranes moist. Sclera clear Neck: Soft, no adenopathy Lungs: Clear to auscultation, decreased, no wheezes rales or rhonchi CV: S1-S2, regular Abdomen: Soft, nontender, nondistended Extremities: No significant edema Musculoskeletal: No significant joint tenderness Neuro: No focal deficits, mild general weakness Psych: Cooperative, normal mood Discharge Exam General: NAD, sitting up in chair at bedside, pleasant, conversing appropriately. A+Ox3. HEENT: Normocephalic, atraumatic. Conjunctivae normal. External ear/nose normal, oropharynx normal. Respiratory: Normal respiratory effort. Diminished breath sounds throughout. Saturating well on RA. Cardiovascular: Regular rate, rhythm, normal peripheral pulses, no BLE edema. Abdomen/GI: Normal bowel sounds, soft, nondistended, nontender to palpation in all quadrants. : Tolbert catheter intact and draining clear, yellow urine without issue. Extremities/Musculoskeletal: No cyanosis or clubbing, extremities motor strength intact, moves all extremities. Neurologic: No overt focal deficits, CN's II-XI not formally tested but appear grossly intact bilaterally. Updated Medication List Medication Instructions Recorded Confirmed Type aspirin 81 mg tablet,delayed 81 mg PO QAM 09/28/19 10/15/24 History release (Bettie Low Dose Aspirin) lisinopril 5 mg tablet 5 mg PO QAM 09/28/19 10/15/24 History pravastatin 10 mg tablet 10 mg PO HS 09/28/19 10/15/24 History L.acidop,casei,lactis,rham-B.lact,joseluis 1 cap PO DAILY #30 caps 10/18/24 Rx 625 mg (10 billion cell) capsule (Advanced Probiotic) amoxicillin 500 mg-potassium 1 tab PO BIDM #5 tabs 10/18/24 Rx clavulanate 125 mg tablet magnesium chloride 71.5 mg 71.5 mg PO DAILY #30 tabs 10/18/24 Rx (magnesium chloride) tablet,delayed release (Slow-Mag) tamsulosin 0.4 mg capsule 0.4 mg PO QAM #30 caps 10/18/24 Rx Hospital Stay Data Consultations 10/15/24 18:26 ED Decision to Admit Stat 10/16/24 07:48 Consult Nephrology Routine 10/16/24 07:50 Consult Urology Routine Diagnostic Imagining Performed 10/15/24 17:01 CT abd pelvis wo con Stat 10/15/24 17:17 CT chest diagnostic wo con Stat 10/16/24 15:02 CT head/brain wo con Urgent Discharge Instructions Given to Patient (Per Discharging Provider) alfredito Jimenez were admitted to [facility] with acute renal failure in the setting of dehydration due to diarrhea. Acute renal failure (ARF), also known as acute kidney injury (CHEMA), refers to a sudden and rapid decline in kidney function. This condition causes the kidneys to lose their ability to filter waste, balance fluids, and maintain proper electrolyte levels in the body. You were treated with IV fluids under the guidance of nephrology and your kidney function significantly improved. You will be scheduled to follow-up with nephrology soon as an outpatient. You were also started on a magnesium supplement as directed by nephrology as your magnesium level has been on the low side. You were also found to have influenza A and pneumonia. You were started on an oral antibiotic called Augmentin. You are being discharged to [facility] for rehabilitation services with a prescription for Augmentin in order to complete a full 5 days of antibiotics. Your NEXT dose will be THIS EVENING. Please take this medication as prescribed and in its entirety! It is encouraged to take a probiotic while on the Augmentin - a prescription has been sent to [facility]. You had a Tolbert catheter placed during your admission. This catheter was REMOVED prior to discharge with successful voiding trial. You were started on a medication called Flomax for your BPH. You will be scheduled to follow-up with urology as an outpatient soon. You will also have a close follow-up appointment with your PCP arranged as well. MEDICATION CHANGES: 1. Flomax 0.4mg once daily. 2. Slow-Mag 71.5mg once daily. 3. HOLD lisinopril until seen by nephrology at your follow-up appointment as per above. 4. Augmentin 500mg twice daily x 2 more days. Will receive 2nd dose for today later this evening. Please take good care of yourself! It has been a pleasure taking care of you. If you have any questions regarding your recent hospitalization please contact [facility] and request Shira Gray @ [phone]. Total Time Total Time Spent Total Time Spent (In Minutes): 60 Supervising Physician Co-Signing Physician Notes Patient seen and examined independently. Discussed with above provider. Patient's creatinine has down trended gradually in the last few days Trial of void was done prior to discharge as per nephrology recommendation and was successful Plan to discharge to rehab with instructions to follow-up with PCP and nephrology I have reviewed the advanced practitioner's documentation, and I agree with, and take responsibility for the plan of care I spent a total of 20 minutes coordinating, documenting, and providing care for this patient excluding time spent in the performance of separately billed services. All of the aforementioned completed while collaborating with the assigned advanced practitioner for a full treatment plan
== END 2024-10-18 15:29 | DRG 682 ==
LOC: ED 16:17 → EDINP 18:53 → SUATTDRO 18:53 → 3W 10-16 00:24